=== PATIENT | female | born 1930 | race Caucasian/White ===

== ENCOUNTER 2018-07-17 10:21 | Emergency (ER) | payer OTHER ==
--- OUTSIDE RECORDS SUMMARY | 2018-07-17 10:23 | XMS REPORT | Continuity of Care Document ---
:1930 Author Organization Interface Problems Problem Status Onset Date Classification Date Comments Source Reported Medications Medication Details Route Status Patient Ordering Order Source Instructions Provider Date Allergies, Adverse Reactions, Alerts Substance Category Reaction Severity Reaction Status Date Comments Source type Reported Immunizations Immunization Date Given Site Status Last Updated Comments Source Results Order Results Value Reference Date Interpretation Comments Source Name Range Vital Signs Vital Sign Value Date Comments Source Encounters Location Location Encounter Encounter Reason Attending ADM DC Status Source Details Type Number For Provider Date Date Visit Outpatient [id number] JAMEEL 09/22 [facility] [place] [id number] JAMEEL 10/20 [place] [address] [place] [facility] [id number] JAMEEL 01/[address] Procedures Procedure Code Date Perfomer Comments Source
[2018-07-17 11:32] LABS: Urine Blood NEGATIVE (NEG); Urine Glucose NEGATIVE (NEG); Urine Protein NEGATIVE (NEG); Urine Specific Gravity 1.015 (1.005-1.030); Urine pH 7.5 (5.0-7.0)
[2018-07-17] MEDS ORDERED: NA CHLORIDE 0.9% 1,000 ML ONE (11:41)
[2018-07-17] MEDS ORDERED: METOCLOPRAMIDE 10 MG/2mL INJ ONE (11:41)
[2018-07-17 11:48] LABS: Absolute Lymphocytes (CBC) 1.4 K/uL (0.7-4.9); Absolute Monocytes 0.4 K/uL (0.1-1.3); Absolute Neutrophil 5.2 K/uL (1.8-8.0); Basophils % 1.1 % (0-1.3); Eosinophils % 1.7 % (0-4.4); Hematocrit 41.3 % (36.0-45.0); Lymphocytes % 19.6 % (15.3-44.8); MPV 7.7 fL (7.6-11.3); Monocytes % 5.8 % (3.3-12.3); RBC Red Blood Cell Count 4.44 M/uL (3.86-4.86)
--- NOTE | 2018-07-17 11:51 | RAD REPORT ---
EXAM DESCRIPTION: Marc Single View07/17/2018 11:24 am CLINICAL HISTORY: Cough COMPARISON: none FINDINGS: Mild prominence of the interstitium bilaterally. Hyperaerated lungs Calcified lung granuloma Calcified mediastinal lymph nodes The heart is normal size IMPRESSION: COPD Prominence of the lung interstitium may be chronic or indicate an acute process such as atypical pneu monia/pneumonitis
--- NOTE | 2018-07-17 11:58 | RAD REPORT ---
EXAM DESCRIPTION: CT - Head Brain Wo Cont - 07/17/2018 11:16 am CLINICAL HISTORY: Dizziness COMPARISON: 2018 mri TECHNIQUE: Computed axial tomography of the head was obtained. IV contrast was not requested. All CT scans are performed using dose optimization technique as appropriate and may include automated exposure control or mA/KV adjustment according to patient size. FINDINGS: An intracranial bleed is not seen . The ventricles are normal in caliber. No extra-axial fluid collection is noted. Moderate low-density areas within periventricular, deep and subcortical white matter likely represent ischemic changes secondary to small vessel disease. Fluid within the sinuses/ mastoids is not seen. IMPRESSION: No acute intracranial abnormality is seen. If patient's symptoms persist MRI of the bra in would be recommended.
[2018-07-17 12:19] LABS: ALT/SGPT 16 U/L (12-78); AST/SGOT 18 U/L (15-37); Albumin 4.2 g/dL (3.4-5.0); Alkaline Phosphatase 69 U/L (45-117); BUN Blood Urea Nitrogen 19 mg/dL (7-18); Bicarbonate 29 mmol/L (21-32); Bilirubin Direct 0.1 mg/dL (0-0.2); Bilirubin Total 0.6 mg/dL (0.2-1.0); Glucose Level 74 mg/dL (74-106); Lipase 209 U/L (73-393); Potassium 3.5 mmol/L (3.5-5.1); Protein, Total 8.5 g/dL (6.4-8.2); Sodium Level 142 mmol/L (136-145)
[2018-07-17] MEDS ORDERED: KETOROLAC 30 MG/ML INJ ONE (12:45)
--- NOTE | 2018-07-17 13:21 | EDPHYS ---
Physician Documentation [facility] Name: Berkley Calvo Age: 87 yrs Sex: Female : 1930 Arrival Date: 07/17/2018 Time: 10:31 Bed 24 Private MD: ED Physician Naida Adam HPI: 07/17 11:16 This 87 yrs old Female presents to ER via EMS with complaints of headach. ma2 11:16 The patient complains of pain to the forehead. Onset: The symptoms/episode ma2 began/occurred gradually, 2 day(s) ago. Associated signs and symptoms: Pertinent positives: Pertinent negatives: dizziness, malaise, paresthesias, vision changes, vomiting, weakness. Severity of symptoms: At its worst the pain was mild, in the emergency department the pain is unchanged. Headache History: The patient has had previous headaches and this one is similar to previous episodes. The patient has experienced similar episodes in the past. Historical: - Allergies: 10:35 No Known Allergies; aj1 - Home Meds: 10:35 Synthroid Oral [Active]; amlodipine oral [Active]; aj1 - PMHx: 10:35 Dementia; CVA; aj1 - Immunization history:: Flu vaccine is not up to date. - Social history:: Smoking status: Patient/guardian denies using tobacco, Patient/guardian denies using alcohol, street drugs, The patient lives with family. - Ebola Screening: : Patient denies travel to an Ebola-affected area in the 21 days before illness onset. - Family history:: not pertinent. - Hospitalizations: : No recent hospitalization is reported. ROS: 11:16 Constitutional: Negative for fever, chills, and weight loss, Cardiovascular: Negative ma2 for chest pain, palpitations, and edema, Respiratory: Negative for shortness of breath, cough, wheezing, and pleuritic chest pain, Abdomen/GI: Negative for abdominal pain, nausea, diarrhea, and constipation, Back: Negative for injury and pain, : Negative for injury, bleeding, discharge, and swelling, MS/Extremity: Negative for injury and deformity. 11:16 Neuro: Positive for headache, Negative for dizziness, seizure activity, speech changes, visual changes. 11:16 All other systems are negative. Exam: 11:16 Constitutional: This is a well developed, well nourished patient who is awake, alert, ma2 and in no acute distress. Chest/axilla: Normal chest wall appearance and motion. Nontender with no deformity. No lesions are appreciated. Cardiovascular: Regular rate and rhythm with a normal S1 and S2. No gallops, murmurs, or rubs. Normal PMI, no JVD. No pulse deficits. Respiratory: Lungs have equal breath sounds bilaterally, clear to auscultation and percussion. No rales, rhonchi or wheezes noted. No increased work of breathing, no retractions or nasal flaring. Abdomen/GI: Soft, non-tender, with normal bowel sounds. No distension or tympany. No guarding or rebound. No evidence of tenderness throughout. Neuro: Awake and alert, GCS 15, oriented to person, place, time, and situation. Cranial nerves II-XII grossly intact. Motor strength 5/5 in all extremities. Sensory grossly intact. Cerebellar exam normal. Normal gait. Vital Signs: 10:35 BP 115 / 76; Pulse 82; Resp 14; Temp 98.2; Pulse Ox 98% on R/A; Weight 44.91 kg; aj1 11:33 BP 143 / 75; Pulse 73; Resp 14; Pulse Ox 98% on R/A; aj1 12:28 BP 152 / 64; Pulse 69; Resp 18; Pulse Ox 97% on R/A; aj1 13:30 BP 131 / 60; Pulse 72; Resp 18; Pulse Ox 97% on R/A; aj1 Joselo Coma Score: 11:16 Eye Response: spontaneous(4). Verbal Response: oriented(5). Motor Response: obeys ma2 commands(6). Total: 15. MDM: 10:32 Patient medically screened. ma2 11:16 Differential diagnosis: migraine, sinusitis, subdural hematoma. Data reviewed: vital ma2 signs, nurses notes. Counseling: I had a detailed discussion with the patient and/or guardian regarding: the historical points, exam findings, and any diagnostic results supporting the discharge/admit diagnosis, the presence of at least one elevated blood pressure reading (>120/80) during this emergency department visit, the need for outpatient follow up. 13:20 Response to treatment: the patient's symptoms have markedly improved after treatment. ma2 07/17 10:55 Order name: Salicylate; Complete Time: 13:09 mn07/17 10:55 Order name: Acetaminophen; Complete Time: 13: mn07/17 10:55 Order name: Basic Metabolic Panel; Complete Time: : mn07/17 10:55 Order name: CBC with Diff; Complete Time: 13: mn07/17 10:55 Order name: Creatinine for Radiology; Complete Time: 13: [facility] 07/17 10:55 Order name: Hepatic Function; Complete Time: 13: mn07/17 10:55 Order name: CT Head Brain wo Cont; Complete Time: 13: mn07/17 10:55 Order name: Lipase; Complete Time: : mn07/17 10:55 Order name: IV Saline Lock; Complete Time: : mn07/17 10:55 Order name: Chest Single View XRAY; Complete Time: 13: mn07/17 11:25 Order name: Urine Dipstick--Ancillary (enter results); Complete Time: 11: 07/17 10:55 Order name: Labs collected and sent; Complete Time: :07/17 10:55 Order name: Urine Dipstick-Ancillary (obtain specimen); Complete Time: 11:25 ma Administered Medications: 11:32 Drug: NS 0.9% 1000 ml Route: IV; Rate: 1 bolus; Site: right antecubital; aj1 14:30 Follow up: IV Status: Completed infusion; IV Intake: 1000ml 11:32 Drug: Reglan 10 mg Route: IVP; Site: right antecubital; aj1 14:30 Follow up: Response: No adverse reaction; Marked relief of symptoms 12:31 Drug: TORadol 30 mg Route: IVP; Site: right antecubital; aj1 Disposition: 07/17/18 13:21 Discharged to Home. Impression: Dehydration. - Condition is Stable. - Discharge Instructions: Dehydration, Adult. - Medication Reconciliation Form, Thank You Letter, Antibiotic Education, Prescription Opioid Use form. - Follow up: Private Physician; When: Tomorrow; Reason: Continuance of care. Signatures: [facility] Arlene Gonzalez RN RN aj1 Rashida Dawson RN RN Naida Adam MD MD ma2 Corrections: (The following items were deleted from the chart) 14:45 13:21 07/17/2018 13:21 Discharged to Home. Impression: Dehydration. Condition is ss Stable. Forms are Medication Reconciliation Form, Thank You Letter, Antibiotic Education, Prescription Opioid Use. Follow up: Private Physician; When: Tomorrow; Reason: Continuance of care. ma2
--- NOTE | 2018-07-17 13:21 | ER ---
Nurse's Notes [facility] Name: Berkley Calvo Age: 87 yrs Sex: Female : 1930 Arrival Date: 07/17/2018 Time: 10:31 Bed 24 Private MD: Diagnosis: Dehydration Presentation: 07/17 10:31 Presenting complaint: Child states: She was at home and she started shivering and said aj1 that she couldn't breathe, she puts on a show like that sometimes but she usually can't shake for that long because she gets tired. She hasn't been drinking enough water and she's not been eating much the past couple weeks. Patient has dementia and cannot remember why she came, states that she feels better and is ready to go home. Transition of care: patient was not received from another setting of care. Onset of symptoms was July 17, 2018. Risk Assessment: Do you want to hurt yourself or someone else? Patient reports no desire to harm self or others. Initial Sepsis Screen: Does the patient meet any 2 criteria? No. Patient's initial sepsis screen is negative. Does the patient have a suspected source of infection? No. Patient's initial sepsis screen is negative. Care prior to arrival: None. 10:31 Method Of Arrival: EMS: [facility] aj1 10:31 Acuity: MILES 3 aj1 Triage Assessment: 10:35 General: Appears in no apparent distress. comfortable, Behavior is anxious, restless. aj1 Pain: Complains of pain in back. Historical: - Allergies: 10:35 No Known Allergies; aj1 - Home Meds: 10:35 Synthroid Oral [Active]; amlodipine oral [Active]; aj1 - PMHx: 10:35 Dementia; CVA; aj1 - Immunization history:: Flu vaccine is not up to date. - Social history:: Smoking status: Patient/guardian denies using tobacco, Patient/guardian denies using alcohol, street drugs, The patient lives with family. - Ebola Screening: : Patient denies travel to an Ebola-affected area in the 21 days before illness onset. - Family history:: not pertinent. - Hospitalizations: : No recent hospitalization is reported. Screenin:37 Abuse screen: Denies threats or abuse. Denies injuries from another. Nutritional aj1 screening: No deficits noted. Tuberculosis screening: No symptoms or risk factors identified. Assessment: 10:37 General: Appears in no apparent distress. comfortable, Behavior is anxious, restless. aj1 Pain: Complains of pain in back. Neuro: Level of Consciousness is awake, alert, obeys commands, confused, Oriented to person. Cardiovascular: Patient's skin is warm and dry. Rhythm is regular. Respiratory: Airway is patent Respiratory effort is even, unlabored, Respiratory pattern is regular, symmetrical, Breath sounds are clear bilaterally. GI: No signs and/or symptoms were reported involving the gastrointestinal system. Abdomen is flat, non-distended, Abd is soft and non tender X 4 quads. Reports nausea. : No signs and/or symptoms were reported regarding the genitourinary system. EENT: No signs and/or symptoms were reported regarding the EENT system. Derm: No signs and/or symptoms reported regarding the dermatologic system. Skin is pink, warm \T\ dry. normal. Musculoskeletal: No signs and/or symptoms reported regarding the musculoskeletal system. Circulation, motion, and sensation intact. 11:33 Reassessment: Patient appears in no apparent distress at this time. No changes from aj1 previously documented assessment. Patient and/or family updated on plan of care and expected duration. Pain level reassessed. 12:27 Reassessment: Patient and/or family updated on plan of care and expected duration. Pain aj1 level reassessed. General: Appears in no apparent distress. comfortable, Behavior is calm, cooperative. Neuro: Level of Consciousness is awake, alert, obeys commands, confused, Oriented to person. Respiratory: Airway is patent Respiratory effort is even, unlabored, Respiratory pattern is regular, symmetrical. GI: Abdomen is flat, non-distended. Derm: Skin is pink, warm \T\ dry. normal. Musculoskeletal: Circulation, motion, and sensation intact. 13:30 Reassessment: Patient appears in no apparent distress at this time. No changes from aj1 previously documented assessment. Patient and/or family updated on plan of care and expected duration. Pain level reassessed. 13:57 Reassessment: Patient discharge pending completion of IV fluids. aj1 Vital Signs: 10:35 BP 115 / 76; Pulse 82; Resp 14; Temp 98.2; Pulse Ox 98% on R/A; Weight 44.91 kg; aj1 11:33 BP 143 / 75; Pulse 73; Resp 14; Pulse Ox 98% on R/A; aj1 12:28 BP 152 / 64; Pulse 69; Resp 18; Pulse Ox 97% on R/A; aj1 13:30 BP 131 / 60; Pulse 72; Resp 18; Pulse Ox 97% on R/A; aj1 [place] Coma Score: 11:16 Eye Response: spontaneous(4). Verbal Response: oriented(5). Motor Response: obeys ma2 commands(6). Total: 15. ED Course: 10:31 Patient arrived in ED. aj1 10:32 Naida Adam MD is Attending Physician. ma2 10:34 Triage completed. aj1 10:35 Arm band placed on. aj1 10:37 Patient has correct armband on for positive identification. Bed in low position. Call aj1 light in reach. Side rails up X 1. 10:37 No provider procedures requiring assistance completed. aj1 11:00 EKG done, by ED staff, reviewed by Naida Adam MD. jb1 11:08 Arlene Ibarra, RN is Primary Nurse. aj1 11:17 CT Head Brain wo Cont In Process Unspecified. EDMS 11:25 Chest Single View XRAY In Process Unspecified. EDMS 14:44 IV discontinued, intact, bleeding controlled, No redness/swelling at site. Pressure ss dressing applied. Administered Medications: 11:32 Drug: NS 0.9% 1000 ml Route: IV; Rate: 1 bolus; Site: right antecubital; aj1 14:30 Follow up: IV Status: Completed infusion; IV Intake: 1000ml ss 11:32 Drug: Reglan 10 mg Route: IVP; Site: right antecubital; aj1 14:30 Follow up: Response: No adverse reaction; Marked relief of symptoms ss 12:31 Drug: TORadol 30 mg Route: IVP; Site: right antecubital; aj1 Intake: 14:30 IV: 1000ml; Total: 1000ml. ss Outcome: 13:21 Discharge ordered by . ma2 14:44 Discharged to home via wheelchair, with family. ss 14:44 Condition: good 14:44 Discharge instructions given to patient, family, Instructed on discharge instructions, follow up and referral plans. Demonstrated understanding of instructions, follow-up care. 14:45 Patient left the ED. ss Signatures: Dispatcher [employer] Jim Trujillo jb1 Arlene Ibarra RN RN aj1 Rashida Dawson RN RN ss Naida Adam MD MD ma2
--- NOTE | 2018-07-18 08:00 | EKG ---
Test Date: 2018-07-17 Test Time: 10:57:02 Program Clinician: ASHWINI MEASUREMENT RESULTS: Intervals: Rate: 79 GA: 162 QRSD: 76 QT: 384 QTc: 440 Swiss: P: 84 GA: 162 QRS: 55 T: 46 INTERPRETIVE STATEMENTS: Normal sinus rhythm Normal ECG No previous ECG available for comparison Electronically Signed On 07-18-18 07:57:22 CDT by Orlin Carreno
== END 2018-07-17 14:45 | disposition home or self-care (01) ==
LOC: ER 10:21
DX: E86.0 Dehydration (principal); F03.90 Unspecified dementia, unspecified severity, without behavioral disturbance, psychotic disturbance, mood disturbance, and anxiety; Z86.73 Personal history of transient ischemic attack (TIA), and cerebral infarction without residual deficits
CPT/HCPCS: 96361; 93005; 85025; 80048; 36415; 80329 ×2; 80076; 81003; 83690; 70450; 71045; 96375; 96374; 99284; J2765; J7030

== ENCOUNTER 2018-10-02 21:39 | Emergency (ER) | payer OTHER ==
--- OUTSIDE RECORDS SUMMARY | 2018-10-02 21:41 | XMS REPORT | Summary of Care ---
:1930 Author Organization [facility] [place] Address [address] [place] [address]- Encounter HQ Encntr_alias(FIN) [id number] Date(s): 01/24/18 - 01/25/18 [facility] [place] [address] [place] [address]- [phone] Vital Signs No data available for this section Problem List Condition Effective Dates Status Health Status Informant Stroke(Confirmed) Resolved Dementia(Confirmed) Active Thyroid condition(Confirmed) Resolved HTN - Hypertension(Confirmed) Active Hypothyroidism(Confirmed) Active Allergies, Adverse Reactions, Alerts No Known Medication Allergies Medications No data available for this section Results No data available for this section Immunizations No data available for this section Procedures Procedure Date Related Diagnosis Body Site Status Bladder augmentation Completed Social History Social History Type Response Employment/School Status: Retired. Other: not driving.1 Smoking Status Former smoker; Type: Cigarettes; Exposure to Tobacco Smoke None ; Cigarette Smoking Last 365 Days No; Reg Smoking Cessation Counseling No entered on: 10/20/17 1has POA Assessment and Plan No data available for this section
--- OUTSIDE RECORDS SUMMARY | 2018-10-02 21:41 | XMS REPORT | Summary of Care ---
:1930 Author Organization [facility] [place] Address [address] [place] [address]- Encounter HQ Encntr_alisulema(FIN) [id number] Date(s): 01/20/18 - 01/20/18 [facility] [place] [address], [place] [address]- [phone] Attending Physician: Maged Quinones MD Referring Physician: Maged Quinones MD Vital Signs No data available for this [...]
--- OUTSIDE RECORDS SUMMARY | 2018-10-02 21:41 | XMS REPORT | Continuity of Care Document ---
:1930 Author Organization [facility] Team Providers Name Role Phone [facility] Unavailable Unavailable Problems Problem Status Onset Classification Date Comments Source Date Reported Stroke Resolved Problem 08/15/2018 [facility] Dementia Active Problem 08/15/2018 [facility] [place] Thyroid condition Resolved Problem 08/15/2018 [facility] [place] [facility] HTN - Active Problem 08/15/2018 [facility] [place] Hypertension Neuro Hypothyroidism Active Problem 08/15/2018 [facility] [place] Medications No Data Provided for This Section Allergies, Adverse Reactions, Alerts Substance Category Reaction Severity Reaction Status Date Comments Source type Reported No Known Assertion Drug [facility] Medication allergy Neuro Allergies Immunizations No Data Provided for This Section Results No Data Provided for This Section Pathology Reports No Data Provided for This Section Diagnostic Reports No Data Provided for This Section Consultation Notes No Data Provided for This Section Discharge Summaries No Data Provided for This Section History and Physicals No Data Provided for This Section Vital Signs No Data Provided for This Section Encounters Location Location Encounter Encounter Reason Attending ADM DC Status Source Details Type Number For Provider Date Date Visit Outpatient [id number] JAEMEL 09/22 [facility]2017 [place] [facility] [id number] JAMEEL 10/20 [facility] [place] [id number] JAMEEL 01/20 [facility]2017 [place] [facility] [id number] Jameel 01/20 01/20 [facility] [place] [facility] /2017 [place] [facility] Outside [id number] 01/24 01/26 [facility] [place] [facility] [place] Records Procedures Procedure Code Date Perfomer Comments Source Bladder [id number] [facility] [place] [facility] augmentation Assessment and Plan No Data Provided for This Section Plan of Care No Data Provided for This Section Social History Social History Date Source Social History TypeResponse 09/22/2017 [facility] [place] [facility] Employment/School Status: Retired. Other: not driving.1 Smoking Status Former smoker; Type: Cigarettes; Exposure to Tobacco Smoke None; Cigarette Smoking Last 365 Days No; Reg Smoking Cessation Counseling No entered on: 10/20/17 1has POA Family History No Data Provided for This Section Advance Directives No Data Provided for This Section Functional Status No Data Provided for This Section
[2018-10-02 22:42] LABS: Absolute Lymphocytes (CBC) 1.6 K/uL (0.7-4.9); Hematocrit 33.6 % (36.0-45.0); Lymphocytes % 20.8 % (15.3-44.8); MPV 7.6 fL (7.6-11.3); RBC Red Blood Cell Count 3.51 M/uL (3.86-4.86)
[2018-10-02 22:57] LABS: Albumin 3.4 g/dL (3.4-5.0); Bilirubin Direct 0.1 mg/dL (0-0.2); Bilirubin Total 0.4 mg/dL (0.2-1.0); Protein, Total 7.2 g/dL (6.4-8.2)
[2018-10-02 23:28] LABS: Urine Amorphous Sediment 1+ /HPF (NONE SEEN); Urine Bacteria 20-50 /HPF (<20); Urine Culture Reflex Order REFLEXED; Urine RBC NONE SEEN /HPF (NONE SEEN)
[2018-10-02 23:29] LABS: Urine Blood TRACE (NEG); Urine Glucose NEGATIVE (NEG); Urine Protein NEGATIVE (NEG); Urine pH 6.5 (5.0-7.0)
[2018-10-03] MEDS ORDERED: CEFTRIAXONE/SWI 1gm 1 GM/10 ML SYR ONE (00:35)
[2018-10-03] MEDS ORDERED: ACETAMINOPHEN 325 MG TABLET ONE (00:35)
--- NOTE | 2018-10-03 01:06 | EDPHYS ---
Physician Documentation [facility] Name: Berkley Calvo Age: 87 yrs Sex: Female : 1930 Arrival Date: 10/02/2018 Time: 21:53 Bed 17 Private MD: Curtis Corley C ED Physician Glen Lackey HPI: 10/03 02:02 This 87 yrs old Female presents to ER via Wheelchair with complaints of Flank tw4 Pain, Drinking an excessive amount of water, Fall Injury. 02:02 The patient complains of pain in the left mid back. The pain does not radiate. Onset: tw4 The symptoms/episode began/occurred yesterday. Modifying factors: The symptoms are alleviated by remaining still, the symptoms are aggravated by movement. Associated signs and symptoms: The patient has no apparent associated signs or symptoms. Severity of pain: At its worst the pain was moderate in the emergency department the pain is unchanged. The patient has not experienced similar symptoms in the past. Historical: - Allergies: 10/02 22:15 No Known Allergies; ea - Home Meds: 22:15 amlodipine oral [Active]; Synthroid Oral [Active]; ea - PMHx: 22:15 Dementia; CVA; OA; scoliosis; ea - Immunization history:: Adult Immunizations up to date. - Social history:: Smoking status: Patient/guardian denies using tobacco. - Ebola Screening: : No symptoms or risks identified at this time. ROS: 10/03 02:02 Constitutional: Negative for fever, chills, and weight loss, Eyes: Negative for injury, tw4 pain, redness, and discharge, Cardiovascular: Negative for chest pain, palpitations, and edema, Respiratory: Negative for shortness of breath, cough, wheezing, and pleuritic chest pain, Abdomen/GI: Negative for abdominal pain, nausea, vomiting, diarrhea, and constipation. MS/Extremity: Negative for injury and deformity, Skin: Negative for injury, rash, and discoloration. : Positive for flank pain. Exam: 02:02 Constitutional: This is a well developed, well nourished patient who is awake, alert, tw4 and in no acute distress. Head/Face: Normocephalic, atraumatic. Chest/axilla: Normal chest wall appearance and motion. Nontender with no deformity. No lesions are appreciated. Cardiovascular: Regular rate and rhythm with a normal S1 and S2. No gallops, murmurs, or rubs. Normal PMI, no JVD. No pulse deficits. Respiratory: Lungs have equal breath sounds bilaterally, clear to auscultation and percussion. No rales, rhonchi or wheezes noted. No increased work of breathing, no retractions or nasal flaring. Abdomen/GI: Soft, non-tender, with normal bowel sounds. No distension or tympany. No guarding or rebound. No evidence of tenderness throughout. 02:02 MS/ Extremity: Pulses equal, no cyanosis. Neurovascular intact. Full, normal range of motion. Neuro: Awake and alert, GCS 15, oriented to person, place, time, and situation. Cranial nerves II-XII grossly intact. Motor strength 5/5 in all extremities. Sensory grossly intact. Cerebellar exam normal. Normal gait. 02:02 Back: CVA tenderness, is noted on the right. Vital Signs: 10/02 22:13 BP 155 / 62; Pulse 70; Resp 20; Temp 98.7; Pulse Ox 100% on R/A; Weight 45.36 kg; ea Height 5 ft. 1 in. (154.94 cm); 23:00 BP 151 / 78; Pulse 62; Resp 17; Pulse Ox 99% ; rr5 10/03 00:26 BP 139 / 55; Pulse 68; Resp 18; Pulse Ox 99% on R/A; mt 01:00 BP 131 / 62; Pulse 65; Resp 17; Pulse Ox 99% on R/A; rr5 10/02 22:13 Body Mass Index 18.89 (45.36 kg, 154.94 cm) ea MDM: 10/02 22:11 Patient medically screened. tw4 10/03 02:02 Differential diagnosis: nephrolithiasis, pyelonephritis. Data reviewed: vital signs, tw4 nurses notes. Counseling: I had a detailed discussion with the patient and/or guardian regarding: the historical points, exam findings, and any diagnostic results supporting the discharge/admit diagnosis. 10/02 22:12 Order name: Basic Metabolic Panel; Complete Time: 00:25 tw4 10/03 00:25 Interpretation: Normal except: BUN 28; GFR 40. tw4 10/02 22:12 Order name: CBC with Diff; Complete Time: 00:25 tw4 08/13 00:25 Interpretation: Normal except: RBC 3.51; HGB 11.4; HCT 33.6. 10/02 22:12 Order name: Creatinine for Radiology; Complete Time: 00:25 10/03 00:25 Interpretation: Normal except: GFR 40. 10/02 22:12 Order name: Hepatic Function; Complete Time: 00:25 10/03 00:26 Interpretation: Normal except: GLOB 3.8; A/G 0.9. 10/02 22:12 Order name: Lipase; Complete Time: 00:25 10/02 22:12 Order name: Urine Microscopic Only; Complete Time: 00:25 10/03 00:27 Interpretation: Normal except: UBACT 20-50. 10/02 22:12 Order name: IV Saline Lock; Complete Time: 22:25 [facility] 10/02 22:12 Order name: Labs collected and sent; Complete Time: 22:25 [facility] 10/02 22:12 Order name: Urine Dipstick-Ancillary (obtain specimen); Complete Time: 22:54 10/02 22:12 Order name: CT Head Brain wo Cont 10/02 22:51 Order name: Urine Dipstick--Ancillary (enter results); Complete Time: 00:25 10/03 00:27 Interpretation: Normal except: UBLD TRACE; UESTR TRACE. 10/02 23:38 Order name: Urine Culture EDMS Administered Medications: 00:45 Drug: Rocephin - (cefTRIAXone) 1 grams Route: IVPB; Infused Over: 30 mins; Site: right rr5 antecubital; 01:19 Follow up: Response: No adverse reaction; IV Status: Completed infusion; IV Intake: [id number] 00:46 Drug: Tylenol 650 mg Route: PO; rr5 01:19 Follow up: Response: Medication administered at discharge. rr5 Disposition: 10/03/18 01:05 Discharged to Home. Impression: Urinary tract infection, site not specified. - Condition is Stable. - Discharge Instructions: Urinary Tract Infection, Adult. - Prescriptions for Macrobid 100 mg Oral Capsule - take 1 capsule by ORAL route every 12 hours for 10 days; 20 capsule. - Medication Reconciliation Form, Thank You Letter, Antibiotic Education, Prescription Opioid Use form. - Follow up: Curtis Corley MD; When: Upon discharge from the Emergency Department; Reason: If symptoms return, Recheck today's complaints, Continuance of care. - Problem is new. - Symptoms have improved. Signatures: Dispatcher [employer] EDMS Edie Shea RN RN Glen Ryder MD MD tw4 Hugo Fine RN RN rr5 Corrections: (The following items were deleted from the chart) 01:20 01:05 10/03/2018 01:05 Discharged to Home. Impression: Urinary tract infection, site rr5 not specified. Condition is Stable. Forms are Medication Reconciliation Form, Thank You Letter, Antibiotic Education, Prescription Opioid Use. Follow up: Curtis Corley; When: Upon discharge from the Emergency Department; Reason: If symptoms return, Recheck today's complaints, Continuance of care. Problem is new. Symptoms have improved. tw4
--- NOTE | 2018-10-03 01:06 | ER ---
Nurse's Notes [facility] Name: Berkley Calvo Age: 87 yrs Sex: Female : 1930 Arrival Date: 10/02/2018 Time: 21:53 Bed 17 Private MD: Curtis Corley C Diagnosis: Urinary tract infection, site not specified Presentation: 10/02 22:09 Presenting complaint: Child states: Pt's daughter reports pt has been complaining of ea left flank pain for a couple days, reports she has seen her drink more water than usual. Daughter reports mother has dementia but has noticed her become more confused this past week. Reports witnessed her slide off the recliner, denies head injury or LOC. Transition of care: patient was not received from another setting of care. Onset of symptoms was October 02, 2018. Risk Assessment: Do you want to hurt yourself or someone else? Patient reports no desire to harm self or others. Initial Sepsis Screen: Does the patient meet any 2 criteria? No. Patient's initial sepsis screen is negative. Does the patient have a suspected source of infection? No. Patient's initial sepsis screen is negative. Care prior to arrival: None. 22:09 Method Of Arrival: Wheelchair ea 22:09 Acuity: MILES 3 ea Triage Assessment: 22:15 General: Appears uncomfortable, Behavior is appropriate for age. Pain: Complains of ea pain in left flank pain. Neuro: Level of Consciousness is awake, alert, obeys commands, Oriented to person, place. Historical: - Allergies: 22:15 No Known Allergies; ea - Home Meds: 22:15 amlodipine oral [Active]; Synthroid Oral [Active]; ea - PMHx: 22:15 Dementia; CVA; OA; scoliosis; ea - Immunization history:: Adult Immunizations up to date. - Social history:: Smoking status: Patient/guardian denies using tobacco. - Ebola Screening: : No symptoms or risks identified at this time. Screenin:13 Abuse screen: Denies threats or abuse. Nutritional screening: No deficits noted. ea Tuberculosis screening: No symptoms or risk factors identified. Fall Risk Fall in past 12 months (25 points). Assessment: 22:10 General: Appears in no apparent distress. uncomfortable, Behavior is calm, cooperative, rr5 patient has history of dementia. 22:10 Pain: Complains of pain in left flank Pain does not radiate. Pain currently is 7 out of rr5 10 on a pain scale. Quality of pain is described as aching, Pain began gradually, Is intermittent. Neuro: Level of Consciousness is awake, alert, obeys commands, Oriented to person, place, time, situation, Appropriate for age. Cardiovascular: Capillary refill < 3 seconds Patient's skin is warm and dry. Respiratory: Airway is patent Respiratory effort is even, unlabored, Respiratory pattern is regular, symmetrical. GI: No signs and/or symptoms were reported involving the gastrointestinal system. : Reports pain in left flank(s). EENT: No signs and/or symptoms were reported regarding the EENT system. Derm: Skin is intact, Skin temperature is warm. Musculoskeletal: Circulation, motion, and sensation intact. Capillary refill < 3 seconds. 23:21 Reassessment: Patient appears in no apparent distress at this time. awaiting for CT rr5 result. 10/03 00:10 Reassessment: Patient appears in no apparent distress at this time. Patient and/or rr5 family updated on plan of care and expected duration. Pain level reassessed. awaiting for review. 01:15 Reassessment: Patient appears in no apparent distress at this time. Patient and/or rr5 family updated on plan of care and expected duration. Pain level reassessed. 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 Patient states symptoms have improved. Vital Signs: 10/02 22:13 BP 155 / 62; Pulse 70; Resp 20; Temp 98.7; Pulse Ox 100% on R/A; Weight 45.36 kg; ea Height 5 ft. 1 in. (154.94 cm); 23:00 BP 151 / 78; Pulse 62; Resp 17; Pulse Ox 99% ; rr5 10/03 00:26 BP 139 / 55; Pulse 68; Resp 18; Pulse Ox 99% on R/A; mt 01:00 BP 131 / 62; Pulse 65; Resp 17; Pulse Ox 99% on R/A; rr5 10/02 22:13 Body Mass Index 18.89 (45.36 kg, 154.94 cm) ea ED Course: 10/02 21:53 Patient arrived in ED. es 21:53 Curtis Corley MD is Private Physician. es 22:04 Huog Fine, TEJAL is Primary Nurse. rr5 22:11 Glen Lackey MD is Attending Physician. tw4 22:13 Triage completed. ea 22:15 Patient has correct armband on for positive identification. Bed in low position. Call ea light in reach. Side rails up X2. 22:15 Arm band placed on right wrist. Patient placed in an exam room, on a stretcher, on ea pulse oximetry. 22:24 Inserted saline lock: 20 gauge in right antecubital area, using aseptic technique. wv Blood collected. 22:32 CT completed. Patient tolerated procedure well. Patient moved to CT. Patient moved back pa from CT. 22:42 CT Head Brain wo Cont In Process Unspecified. EDAZ 10/03 01:03 Curtis Corley MD is Referral Physician. tw4 01:20 No provider procedures requiring assistance completed. IV discontinued, intact, rr5 bleeding controlled, No redness/swelling at site. Pressure dressing applied. Administered Medications: 00:45 Drug: Rocephin - (cefTRIAXone) 1 grams Route: IVPB; Infused Over: 30 mins; Site: right rr5 antecubital; 01:19 Follow up: Response: No adverse reaction; IV Status: Completed infusion; IV Intake: [id number] 00:46 Drug: Tylenol 650 mg Route: PO; rr5 01:19 Follow up: Response: Medication administered at discharge. rr5 Intake: 01:19 IV: 50ml; Total: 50ml. rr5 Outcome: 01:05 Discharge ordered by . tw4 01:20 Discharged to home ambulatory, with family. rr5 01:20 Condition: stable 01:20 Discharge instructions given to family, Instructed on discharge instructions, follow up and referral plans. medication usage, Demonstrated understanding of instructions, follow-up care, medications, Prescriptions given X 1. 01:20 Patient left the ED. rr5 Signatures: Dispatcher [employer] EDAZ Christy Hendricks, Yulia Larsen mt, Elena, Glen Carballo RN, ea, MD MD tw4 Hugo Fine, TEJAL RN rr5
--- NOTE | 2018-10-04 10:23 | RAD REPORT ---
EXAM DESCRIPTION: CT - Head Brain Wo Cont - 10/03/2018 3:53 am CLINICAL HISTORY: CONFUSED COMPARISON: July 17, 2018 TECHNIQUE: Contiguous axial sections are obtained as per protocol. Sagittal and coronal reformations are submitted Automatic exposure control (AEC), mA and/or kV adjustment by patient size, and/or iterative reconstru ctive technique was used, per departmental dose optimization program, during the performance of the C T examination. FINDINGS: Prominence of the lateral ventricles, greater on the left than the right are noted. Perive ntricular deep white matter ischemic demyelinating changes are seen. Mild generalized cortical atroph y is noted. Normal cho-white matter differentiation is noted. No evidence of intra or extra-axial hemorrhage, hematoma, mass, mass effect or midline shift is noted. The posterior fossa structures appear normal. The bony calvarium appears intact. The soft tissues of the scalp appear unremarkable. Normal appearance of the orbits are noted. The paranasal sinuses and mastoids appear normal. IMPRESSION: No acute findings or interval change. If clinically ischemic CVA is suspected, MRI brain with diffusion-weighted images should be considere d. Electronically signed by: Estrella Mace MD 10/02/2018 10:48 PM CDT Due to temporary technical issues with the PACS/Fluency reporting system, reports are being signed by the in house radiologist as a courtesy to ensure prompt reporting. The interpreting radiologist is f ully responsible for the content of the report.
== END 2018-10-03 01:20 | disposition home or self-care (01) ==
LOC: ER 21:39
DX: N39.0 Urinary tract infection, site not specified (principal); F03.90 Unspecified dementia, unspecified severity, without behavioral disturbance, psychotic disturbance, mood disturbance, and anxiety; Z86.73 Personal history of transient ischemic attack (TIA), and cerebral infarction without residual deficits
CPT/HCPCS: 96365; 87088; 85025; 87086; 80048; 36415; 80076; 83690; 70450; 99284; J0696; 81003; 81015

== ENCOUNTER 2018-12-04 03:02 | Emergency (ER) | payer OTHER ==
--- NOTE | 2018-12-04 04:23 | EDPHYS ---
Physician Documentation [facility] Name: Berkley Calvo Age: 88 yrs Sex: Female : 1930 Arrival Date: 12/04/2018 Time: 03:09 Bed 7 Private MD: ED Physician Guru Tran HPI: 12/04 04:02 This 88 yrs old Female presents to ER via EMS with complaints of Fall Injury. gs 04:02 Details of fall: The patient fell from seated position. Onset: The symptoms/episode gs began/occurred acutely, just prior to arrival. Associated injuries: The patient sustained injury to the head, contusion, hematoma. Severity of symptoms: At their worst the symptoms were moderate, in the emergency department the symptoms are unchanged. The patient has experienced similar episodes in the past, a few times. Historical: - Allergies: 03:00 No Known Allergies; rr5 - Home Meds: 03:00 amlodipine 5 mg oral tab [Active]; aspirin 81 mg Oral TbEC [Active]; levothyroxine 50 rr5 mcg tab [Active]; Lexapro 10 mg Oral tab [Active]; Tylenol Extra Strength oral oral [Active]; Tylenol 325 mg oral tab [Active]; - PMHx: 03:00 Dementia; Anxiety; Thyroid problem; CVA; OA; scoliosis; Hypertension; rr5 - Immunization history: Last tetanus immunization: unknown. - Social history:: Smoking status: Patient/guardian denies using tobacco, Patient/guardian denies using alcohol. - Ebola Screening: : No symptoms or risks identified at this time. ROS: 04:02 All other systems are negative. gs Exam: 04:02 Eyes: Pupils equal round and reactive to light, extra-ocular motions intact. Lids and gs lashes normal. Conjunctiva and sclera are non-icteric and not injected. Cornea within normal limits. Periorbital areas with no swelling, redness, or edema. ENT: Nares patent. No nasal discharge, no septal abnormalities noted. Tympanic membranes are normal and external auditory canals are clear. Oropharynx with no redness, swelling, or masses, exudates, or evidence of obstruction, uvula midline. Mucous membranes moist. Neck: Trachea midline, no thyromegaly or masses palpated, and no cervical lymphadenopathy. Supple, full range of motion without nuchal rigidity, or vertebral point tenderness. No Meningismus. Chest/axilla: Normal chest wall appearance and motion. Nontender with no deformity. No lesions are appreciated. Cardiovascular: Regular rate and rhythm with a normal S1 and S2. No gallops, murmurs, or rubs. Normal PMI, no JVD. No pulse deficits. Respiratory: Lungs have equal breath sounds bilaterally, clear to auscultation and percussion. No rales, rhonchi or wheezes noted. No increased work of breathing, no retractions or nasal flaring. Abdomen/GI: Soft, non-tender, with normal bowel sounds. No distension or tympany. No guarding or rebound. No evidence of tenderness throughout. Back: No spinal tenderness. No costovertebral tenderness. Full range of motion. Skin: Warm, dry with normal turgor. Normal color with no rashes, no lesions, and no evidence of cellulitis. MS/ Extremity: Pulses equal, no cyanosis. Neurovascular intact. Full, normal range of motion. 04:02 Constitutional: The patient appears alert, awake. 04:02 Head/face: Noted is contusion, hematoma, that is mild, of the lateral canthus of right eye. 04:02 Neuro: Mentation: at baseline per daughter, Cranial nerves: CN II- XII are normal as tested, Motor: moves all fours, strength is normal, Sensation: no obvious gross deficits. Vital Signs: 03:00 BP 132 / 69; Pulse 63; Resp 36; Temp 97.6(O); Pulse Ox 100% on R/A; Weight 45.36 kg jb4 (R); Height 5 ft. 2 in. (157.48 cm); Pain 6/10; 04:00 BP 138 / 69; Pulse 60; Resp 16; Pulse Ox 94% on R/A; jb4 03:00 Body Mass Index 18.29 (45.36 kg, 157.48 cm) jb4 [place] Coma Score: 03:00 Eye Response: spontaneous(4). Verbal Response: confused(4). Motor Response: obeys jb4 commands(6). Total: 14. 04:00 Eye Response: spontaneous(4). Verbal Response: confused(4). Motor Response: obeys jb4 commands(6). Total: 14. Trauma Score (Adult): 03:00 Eye Response: spontaneous(1); Verbal Response: confused(1); Motor Response: obeys jb4 commands(2); Systolic BP: > 89 mm Hg(4); Respiratory Rate: > 29 per min(3); Joselo Score: 14; Trauma Score: 11 04:00 Eye Response: spontaneous(1); Verbal Response: confused(1); Motor Response: obeys jb4 commands(2); Systolic BP: > 89 mm Hg(4); Respiratory Rate: 10 to 29 per min(4); [place] Score: 14; Trauma Score: 12 MDM: 03:22 Patient medically screened. 04:02 Differential diagnosis: closed head injury, contusion, fracture. Data reviewed: vital gs signs, nurses notes, radiologic studies. Counseling: I had a detailed discussion with the patient and/or guardian regarding: the historical points, exam findings, and any diagnostic results supporting the discharge/admit diagnosis, lab results. 12/04 03:17 Order name: CT Head C Spine gs Administered Medications: No medications were administered Disposition: 12/04/18 04:22 Discharged to Home. Impression: Contusion of other part of head. - Condition is Stable. - Discharge Instructions: Head Injury, Adult. - Medication Reconciliation Form, Thank You Letter, Antibiotic Education, Prescription Opioid Use form. - Follow up: Private Physician; When: 2 - 3 days; Reason: Re-evaluation by your physician. Signatures: Dispatcher [employer] EDRuben Ortez RN RN jb4 Guru Tran MD MD Hugo Fine RN RN rr5 Corrections: (The following items were deleted from the chart) 03:22 03:22 Hospitalization Ordered by Naida Thompson MD for Inpatient Admission. Preliminary gs diagnosis is Unstable angina. Bed requested for Telemetry/MedSurg (Inpatient). Status is Inpatient Admission. Condition is Stable. Problem is new. Symptoms have improved. UTI on Admission? No. gs 04:32 04:22 12/04/2018 04:22 Discharged to Home. Impression: Contusion of other part of head. jb4 Condition is Stable. Forms are Medication Reconciliation Form, Thank You Letter, Antibiotic Education, Prescription Opioid Use. Follow up: Private Physician; When: 2 - 3 days; Reason: Re-evaluation by your physician. gs
--- NOTE | 2018-12-04 04:23 | ER ---
Nurse's Notes [facility] Name: Berkley Calvo Age: 88 yrs Sex: Female : 1930 Arrival Date: 12/04/2018 Time: 03:09 Bed 7 Private MD: Diagnosis: Contusion of other part of head Presentation: 12/04 03:00 Presenting complaint: EMS states: PT fell from sitting, was on the toilet and fell and jb4 hit her head. LOC is unknown. Pt was reportedly at her base line prior to the fall, now she is oriented only to self. Pt vomited once after falling. 03:00 Care prior to arrival: None. Mechanism of Injury: Fall out of chair. Trauma event jb4 details: Injury occurred in the [facility]. 03:00 Method Of Arrival: EMS: [facility] jb4 03:00 Acuity: MILES 2 jb4 03:00 Transition of care: patient was received from another setting of care (long-term care 4 facility), [facility]. 03:00 Onset of symptoms was December 04, 2018. Risk Assessment: Do you want to hurt yourself jb4 or someone else? Patient reports no desire to harm self or others. Initial Sepsis Screen: Does the patient meet any 2 criteria? RR > 20 per min. Yes Does the patient have a suspected source of infection? No. Patient's initial sepsis screen is negative. Trauma Activation: Alert Physician: ED Physician; Name: Chelsea; Notified At: 03:00; Arrived At: 03:00 Physician: General Surgeon; Name: ; Notified At: ; Arrived At: Physician: Radiology; Name: Elsy; Notified At: 03:00; Arrived At: 03:00 Physician: Respiratory; Name: ; Notified At: ; Arrived At: Physician: Lab; Name: ; Notified At: ; Arrived At: Historical: - Allergies: 03:00 No Known Allergies; rr5 - Home Meds: 03:00 amlodipine 5 mg oral tab [Active]; aspirin 81 mg Oral TbEC [Active]; levothyroxine 50 rr5 mcg tab [Active]; Lexapro 10 mg Oral tab [Active]; Tylenol Extra Strength oral oral [Active]; Tylenol 325 mg oral tab [Active]; - PMHx: 03:00 Dementia; Anxiety; Thyroid problem; CVA; OA; scoliosis; Hypertension; rr5 - Immunization history: Last tetanus immunization: unknown. - Social history:: Smoking status: Patient/guardian denies using tobacco, Patient/guardian denies using alcohol. - Ebola Screening: : No symptoms or risks identified at this time. Screenin:00 Abuse screen: Denies threats or abuse. Nutritional screening: No deficits noted. jb4 Tuberculosis screening: No symptoms or risk factors identified. Fall risk At risk due to injury, age. 03:00 Fall Risk Fall in past 12 months (25 points). Secondary diagnosis (15 points) dementia, jb4 Mental Status- Overestimates/Forgets Limitations (15 pts.). Total Correa Fall Scale indicates High Risk Score (45 or more points). Fall prevention measures have been instituted. Side Rails Up X 2 Placed Close to Nursing Station Frequent Obs/Assessments Occuring Family Present and informed to notify staff if the need to leave the bedside As available patient and family educated on Fall Prevention Program and Strategies. Primary Survey: 03:00 NO uncontrolled hemorrhage observed. A: The patient is alert. Airway: patent, No jb4 supplemental oxygen in use on arrival. Breathing/Chest: Respiratory pattern: regular, Respiratory effort: spontaneous, unlabored, Chest inspection: symmetrical rise and fall of the chest. Circulation: Cardiac rhythm: sinus rhythm Skin color: pink, Skin temperature: warm, dry. Disability Alert. Exposure/Environment: All clothing and personal items were removed. Forensic evidence collection is not deemed to be indicated at this time. Items placed in patient belonging bag. There is no evidence of uncontrolled external bleeding. Obvious injury(ies) are noted at this time: Bruise noted to the right eye. A warming method has been applied: A warm blanket has been provided to the patient. 03:59 Reassessment Airway Airway Patent Breathing/Chest Respiratory pattern Regular jb4 Respiratory effort Spontaneous Unlabored Circulation Color [place] Temperature Warm Dry Disability Alert. Secondary Survey: 03:00 HEENT: Face Other Bruise noted to the right eye. Gastrointestinal: Patient vomited jb4 prior to arrival. : No deficits noted. No signs and/or symptoms were reported regarding the genitourinary system. Musculoskeletal: Circulation, motion, and sensation intact. Range of motion: intact in all extremities. Assessment: 03:00 General: Appears distressed, uncomfortable, Behavior is cooperative, anxious. Pain: jb4 Complains of pain in lateral canthus of right eye and right wrist Pain does not radiate. Pain currently is 6 out of 10 on a pain scale. Neuro: Level of Consciousness is awake, alert, obeys commands, Oriented to person, PT's daughter in law reports patient is at her base line.. Cardiovascular: Patient's skin is warm and dry. Rhythm is sinus rhythm. Respiratory: Airway is patent Respiratory effort is even, unlabored, Respiratory pattern is regular, symmetrical. GI: No deficits noted. No signs and/or symptoms were reported involving the gastrointestinal system. : No deficits noted. No signs and/or symptoms were reported regarding the genitourinary system. EENT: No deficits noted. No signs and/or symptoms were reported regarding the EENT system. Derm: Skin is intact, Skin is pink, warm \T\ dry. Musculoskeletal: Circulation, motion, and sensation intact. Range of motion: intact in all extremities. 04:00 Reassessment: Patient appears in no apparent distress at this time. No changes from jb4 previously documented assessment. Patient and/or family updated on plan of care and expected duration. Pain level reassessed. 04:31 Reassessment: Patient appears in no apparent distress at this time. Patient and/or 4 family updated on plan of care and expected duration. Pain level reassessed. PT discharged home with daughter in law. Assisted to vehicle via wheelchair. Vital Signs: 03:00 BP 132 / 69; Pulse 63; Resp 36; Temp 97.6(O); Pulse Ox 100% on R/A; Weight 45.36 kg jb4 (R); Height 5 ft. 2 in. (157.48 cm); Pain 6/10; 04:00 BP 138 / 69; Pulse 60; Resp 16; Pulse Ox 94% on R/A; jb4 03:00 Body Mass Index 18.29 (45.36 kg, 157.48 cm) jb4 Boyce Coma Score: 03:00 Eye Response: spontaneous(4). Verbal Response: confused(4). Motor Response: obeys jb4 commands(6). Total: 14. 04:00 Eye Response: spontaneous(4). Verbal Response: confused(4). Motor Response: obeys jb4 commands(6). Total: 14. Trauma Score (Adult): 03:00 Eye Response: spontaneous(1); Verbal Response: confused(1); Motor Response: obeys jb4 commands(2); Systolic BP: > 89 mm Hg(4); Respiratory Rate: > 29 per min(3); Joselo Score: 14; Trauma Score: 11 04:00 Eye Response: spontaneous(1); Verbal Response: confused(1); Motor Response: obeys jb4 commands(2); Systolic BP: > 89 mm Hg(4); Respiratory Rate: 10 to 29 per min(4); Boyce Score: 14; Trauma Score: 12 ED Course: 03:00 Patient has correct armband on for positive identification. Placed in gown. Bed in low jb4 position. Call light in reach. Side rails up X 1. Patient maintains SpO2 saturation greater than 95% on room air. 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 Pulse ox on. NIBP on. 03:00 Arm band placed on right wrist. jb4 03:00 Patient maintains SpO2 saturation greater than 95% on room air. jb4 03:00 Thermoregulation: warm blanket given to patient. jb4 03:09 Patient arrived in ED. jb4 03:11 Hugo Fine, RN is Primary Nurse. rr5 03:12 Triage completed. jb4 03:13 Guru Tran MD is Attending Physician. gs 03:22 Naida Thompson MD is Hospitalizing Provider. gs 03:48 Ruben Watson, RN is Primary Nurse. jb4 04:04 CT Head C Spine In Process Unspecified. EDMS 04:31 No provider procedures requiring assistance completed. Patient did not have IV access jb4 during this emergency room visit. Administered Medications: No medications were administered Intake: 04:32 PO: 0ml; Total: 0ml. jb4 Output: 04:32 Urine: 0ml; Total: 0ml. jb4 Outcome: 03:22 Decision to Hospitalize by Provider. gs 04:22 Discharge ordered by . gs 04:31 Discharged to home via wheelchair, with family. jb4 04:31 Condition: stable 04:31 Discharge instructions given to family, Instructed on discharge instructions, follow up and referral plans. Demonstrated understanding of instructions, follow-up care. 04:32 Patient's length of stay was not longer than 2 hours. jb4 04:32 Patient left the ED. jb4 Signatures: Dispatcher [employer] [facility] Ruben Watson RN RN jb4 Guru Tran MD MD Hugo Fine RN RN rr5
[2018-12-04 04:36] VITALS: BP 138/69; O2SAT 94
--- NOTE | 2018-12-04 10:00 | EKG ---
Test Date: 2018-12-04 Test Time: 03:09:16 [place]man: ZANA MEASUREMENT RESULTS: Intervals: Rate: 67 MN: 172 QRSD: 80 QT: 424 QTc: 448 [place]: P: 79 MN: 172 QRS: 45 T: 61 INTERPRETIVE STATEMENTS: Normal sinus rhythm Normal ECG Compared to ECG 07/17/2018 10:57:02 No significant changes Electronically Signed On 12-04-18 09:59:54 CDT by Negrito Luis
--- NOTE | 2018-12-04 10:25 | RAD REPORT ---
EXAM DESCRIPTION: CT - [id number] - 12/04/2018 4:23 am CLINICAL HISTORY: The patient is 88 years old and is Female; PAIN TECHNIQUE: Axial computed tomography images of the head/brain and cervical spine without intravenous contrast. Sagittal and coronal reformatted images were created and reviewed. This CT exam was pe rformed using one or more of the following dose reduction techniques: automated exposure control, a djustment of the mA and/or kV according to patient size, and/or use of iterative reconstruction techn ique. COMPARISON: No relevant prior studies available. FINDINGS: BRAIN: There is diffuse cerebral atrophy present, consistent with this patient's age. There is patchy hypoattenuation of the deep white matter which is non-specific, but most likely owing to chronic small vessel ischemic change in a patient of this age group. No intracranial hemorrhage , mass effect, or midline shift is seen. There are no extra-axial fluid collections. VENTRICLES: There is diffuse prominence of the ventricles, which is likely related to central at rophy. SKULL: No acute fracture. SINUSES: Unremarkable as visualized. No acute sinusitis. MASTOID AIR CELLS: Unremarkable as visualized. No mastoid effusion. VERTEBRAE: Examination is limited as the anterior aspect of the C2, C3, C4 vertebral body are in completely imaged. The vertebral body heights and alignment are grossly maintained. DISCS/SPINAL CANAL/NEURAL FORAMINA: There is multi-level intervertebral disc height loss. There are disc-osteophyte complexes at several levels, with associated mild spinal canal narrowing. There i s also facet hypertrophy and uncovertebral joint osteophytosis, with associated multilevel neural for aminal narrowing. SOFT TISSUES: The soft tissues are normal. LUNG APICES: The lung apices are clear. IMPRESSION: 1. Age-related atrophy and chronic white matter ischemic changes, with no evidence of an acute intracranial abnormality. 2. Mild spondylosis of the cervical spine without gross findings. Electronically signed by: Patria Clark MD 12/04/2018 4:10 AM CDT Due to temporary technical issues with the PACS/Fluency reporting system, reports are being signed by the in house radiologist as a courtesy to ensure prompt reporting. The interpreting radiologist is f ully responsible for the content of the report.
== END 2018-12-04 04:32 | disposition home or self-care (01) ==
LOC: ER 03:02
DX: S00.93XA Contusion of unspecified part of head, initial encounter (principal); W17.89XA Other fall from one level to another, initial encounter; Y93.9 Activity, unspecified; Y92.9 Unspecified place or not applicable; F41.9 Anxiety disorder, unspecified; E07.9 Disorder of thyroid, unspecified
CPT/HCPCS: 70450; 72125; 93005; 99284

== ENCOUNTER 2018-12-22 19:16 | Inpatient (IN) | payer OTHER ==
[2018-12-22] MEDS ORDERED: NA CHLORIDE 0.9% 1,000 ML ONE (20:46)
[2018-12-22 20:53] LABS: Absolute Lymphocytes (CBC) 0.9 K/uL (0.7-4.9); Basophils % 0.4 % (0-1.3); Hematocrit 40.1 % (36.0-45.0); Lymphocytes % 9.3 % (15.3-44.8); MPV 7.7 fL (7.6-11.3); RBC Red Blood Cell Count 4.28 M/uL (3.86-4.86)
--- NOTE | 2018-12-22 20:54 | RAD REPORT ---
EXAM DESCRIPTION: CT - Head C Spine Cap Wo Con - 12/22/2018 8:41 pm CLINICAL HISTORY: Trauma, head and neck injury. Chest, abdomen and pelvis pain. Pain;Swelling COMPARISON: No comparisons TECHNIQUE: CT head without contrast. CT cervical spine without contrast with coronal and sagittal reformatted images. CT chest, abdomen and pelvis without contrast with coronal and sagittal reformatted images of the spi ne. All CT scans are performed using dose optimization technique as appropriate and may include automated exposure control or mA/KV adjustment according to patient size. FINDINGS: CT HEAD WITHOUT CONTRAST: No intracranial hemorrhage, hydrocephalus or extra-axial fluid collection. Moderate generalized brain atrophy is present with moderate periventricular and deep white matter chronic microvascular ischemi c changes. No areas of brain edema or midline shift. The paranasal sinuses and mastoids are clear. The calvarium is intact. CT CERVICAL SPINE WITHOUT CONTRAST: No fracture or subluxation. Moderate lower cervical spondylosis is present. The prevertebral soft tis sues are normal in thickness. CT CHEST, ABDOMEN, PELVIS WITHOUT CONTRAST: NOTE: Lack of contrast is a significant limitation in the assessment of trauma related findings. Spec ifically, solid organ, vascular and bowel evaluation is significantly limited. The lungs are emphysematous.No pneumothorax or pericardial/pleural fluid. No evidence of intra-abdominal visceral injury, free fluid or free air is seen within the above detai led limitations. Cholelithiasis. Moderate colonic diverticulosis is seen. Subcapital fracture the proximal right femur is suspected. IMPRESSION: Subcapital fracture proximal right femur suspected. Elsewhere, trauma related abnormality is seen.
[2018-12-22 20:55] LABS: Protime INR 1.02
--- NOTE | 2018-12-22 21:54 | EDPHYS ---
Physician Documentation [facility] Name: Berkley Calvo Age: 88 yrs Sex: Female : 1930 Arrival Date: 12/22/2018 Time: 19:32 Bed 30 Private MD: JESÚS Physician Emeterio Packer HPI: 12/22 21:46 This 88 yrs old Female presents to ER via EMS with complaints of Fall. irena 21:46 The patient or guardian reports decreased range of motion, deformity, pain. that irena occurred at a [facility] or assisted living facility, sustained from a fall, right leg is externally rotated, The patient is not able to ambulate. Patient is not able to bear weight. There is no radiation of the patient's discomfort. The complaints affect the right hip, right gluteal fold, right inner thigh and right upper thigh. Onset: The symptoms/episode began/occurred just prior to arrival. Modifying factors: The symptoms are alleviated by nothing, the symptoms are aggravated by any movement. Details of fall: The patient fell from an upright position, while walking. Associated injuries: The patient sustained right hip, right gluteal fold, right inner thigh and right upper thigh. Historical: - Home Meds: 19:46 amlodipine 5 mg tab [Active]; aspirin 81 mg Oral TbEC [Active]; levothyroxine 50 mcg tr5 tab [Active]; Lexapro 10 mg Oral tab [Active]; Tylenol 325 mg Oral tab [Active]; Tylenol Extra Strength Oral [Active]; - PMHx: 19:46 Anxiety; CVA; Dementia; Hypertension; OA; scoliosis; Thyroid problem; tr5 - Immunization history:: Adult Immunizations up to date. - Social history:: Smoking status: Patient/guardian denies using tobacco, never smoked. - Ebola Screening: : No symptoms or risks identified at this time. - Family history:: not pertinent. ROS: 21:46 Constitutional: Negative for fever, chills, and weight loss, Eyes: Negative for injury, irena pain, redness, and discharge, ENT: Negative for injury, pain, and discharge, Neck: Negative for injury, pain, and swelling, Cardiovascular: Negative for chest pain, palpitations, and edema, Respiratory: Negative for shortness of breath, cough, wheezing, and pleuritic chest pain, Abdomen/GI: Negative for abdominal pain, nausea, vomiting, diarrhea, and constipation, Back: Negative for injury and pain, : Negative for injury, bleeding, discharge, and swelling, Skin: Negative for injury, rash, and discoloration, Neuro: Negative for headache, weakness, numbness, tingling, and seizure, Psych: Negative for depression, anxiety, suicide ideation, homicidal ideation, and hallucinations, Allergy/Immunology: Negative for hives, rash, and allergies, Endocrine: Negative for neck swelling, polydipsia, polyuria, polyphagia, and marked weight changes, Hematologic/Lymphatic: Negative for swollen nodes, abnormal bleeding, and unusual bruising. 21:46 MS/extremity: Positive for decreased range of motion, pain, tenderness, of the right femoral area and right hip. Exam: 21:46 Constitutional: This is a well developed, well nourished patient who is awake, alert, irena and in no acute distress. Head/Face: Normocephalic, atraumatic. Eyes: Pupils equal round and reactive to light, extra-ocular motions intact. Lids and lashes normal. Conjunctiva and sclera are non-icteric and not injected. Cornea within normal limits. Periorbital areas with no swelling, redness, or edema. ENT: Nares patent. No nasal discharge, no septal abnormalities noted. Tympanic membranes are normal and external auditory canals are clear. Oropharynx with no redness, swelling, or masses, exudates, or evidence of obstruction, uvula midline. Mucous membranes moist. Neck: Trachea midline, no thyromegaly or masses palpated, and no cervical lymphadenopathy. Supple, full range of motion without nuchal rigidity, or vertebral point tenderness. No Meningismus. Chest/axilla: Normal chest wall appearance and motion. Nontender with no deformity. No lesions are appreciated. Cardiovascular: Regular rate and rhythm with a normal S1 and S2. No gallops, murmurs, or rubs. Normal PMI, no JVD. No pulse deficits. Respiratory: Lungs have equal breath sounds bilaterally, clear to auscultation and percussion. No rales, rhonchi or wheezes noted. No increased work of breathing, no retractions or nasal flaring. Abdomen/GI: Soft, non-tender, with normal bowel sounds. No distension or tympany. No guarding or rebound. No evidence of tenderness throughout. Back: No spinal tenderness. No costovertebral tenderness. Full range of motion. Skin: Warm, dry with normal turgor. Normal color with no rashes, no lesions, and no evidence of cellulitis. Psych: Awake, alert, with orientation to person, place and time. Behavior, mood, and affect are within normal limits. 21:46 Musculoskeletal/extremity: ROM: limited active range of motion due to pain, limited passive range of motion due to pain, in the right leg, Circulation is intact in all extremities. the right leg Compartment Syndrome exam of affected extremity: is normal. Joints: Weight bearing: can bear weight with assistance only, DVT Exam: no pain, no swelling, no tenderness, negative Homans' sign noted on exam, no erythema. Vital Signs: 19:47 BP 138 / 77; Pulse 75; Resp 15; Temp 97.6(O); Pulse Ox 100% on R/A; tr5 21:00 BP 151 / 88; Pulse 79; Resp 17; Pulse Ox 100% on R/A; tr5 22:00 BP 145 / 88; Pulse 86; Resp 16; Pulse Ox 97% on R/A; tr5 23:00 BP 127 / 61; Pulse 76; Resp 16; Pulse Ox 99% on 2 lpm NC; tr5 MDM: 19:41 Patient medically screened. [facility] 21:50 Data reviewed: vital signs, nurses notes, lab test result(s), EKG, radiologic studies, [facility] CT scan, MRI, plain films. 12/22 20:12 Order name: Basic Metabolic Panel [facility] 12/22 20:12 Order name: CBC with Diff; Complete Time: 21:45 [facility] 12/22 20:12 Order name: LFT's [facility] 12/22 20:12 Order name: Magnesium [facility] 12/22 20:12 Order name: NT PRO-BNP [facility] 12/22 20:12 Order name: PT-INR; Complete Time: 21:45 [facility] 12/22 20:12 Order name: Troponin (emerg Dept Use Only) [facility] 12/22 20:12 Order name: XRAY Chest (1 view) [facility] 12/22 20:12 Order name: CT Traumagram (Head C Spine CAP wo con); Complete Time: 21:45 [facility] 12/22 20:12 Order name: Urine Culture [facility] 12/22 20:12 Order name: Type And Screen; Complete Time: 22:41 [facility] 12/22 23:15 Order name: Urine Dipstick--Ancillary (enter results) 12/22 23:24 Order name: ABO/RH no charge [facility] 12/22 23:29 Order name: Urine Dipstick-Ancillary [facility] 12/22 20:12 Order name: EKG; Complete Time: 20:13 [facility] 12/22 20:12 Order name: Cardiac monitoring; Complete Time: 20:35 [facility] 12/22 20:12 Order name: EKG - Nurse/Tech; Complete Time: 21:55 [facility] 12/22 20:12 Order name: IV Saline Lock; Complete Time: 20:35 [facility] 12/22 20:12 Order name: Labs collected and sent; Complete Time: 20:35 [facility] 12/22 20:12 Order name: O2 Per Protocol; Complete Time: 20:51 [facility] 12/22 20:12 Order name: O2 Sat Monitoring; Complete Time: 20:51 [facility] 12/22 20:12 Order name: Urine Dipstick-Ancillary (obtain specimen); Complete Time: 23:04 [facility] 12/22 20:12 Order name: Pelvis XRAY [facility] 12/22 20:12 Order name: Hip Right 2 View XRAY [facility] 12/22 20:12 Order name: Femur Right XRAY [facility] 12/22 22:00 Order name: CONS Physician Consult [facility] 12/22 22:41 Order name: Hill Leg Bag; Complete Time: 23:04 [facility] Administered Medications: 20:50 Drug: NS 0.9% 1000 ml Route: IV; Rate: 125 ml/hr; Site: left antecubital; tr5 23:13 Drug: Zofran 4 mg Route: IVP; Site: left antecubital; tr5 23:47 Follow up: Response: Nausea is decreased tr5 23:14 Drug: morphine 2 mg {Note: RASS:0.} Route: IVP; Site: left antecubital; tr5 23:47 Follow up: Response: Pain is decreased; RASS: Alert and Calm (0) tr5 Disposition: 12/22/18 21:53 Hospitalization ordered by Philip Corley for Inpatient Admission. Preliminary diagnosis are Fall due to bumping against object, Weakness, Nondisplaced fracture of base of neck of right femur - [facility], Urinary tract infection, site not specified, Dementia in other diseases classified elsewhere. - Bed requested for Telemetry/MedSurg (Inpatient). - Status is Inpatient Admission. tr5 - Condition is Fair. - Problem is new. - Symptoms have improved. UTI on Admission? No Signatures: Dispatcher [employer] Emeterio Acuña MD MD cha Garcia, Cindy, RN RN Roderick Chavez RN RN tr5 Corrections: (The following items were deleted from the chart) 22:37 21:53 Hospitalization Ordered by Philip Corley MD for Inpatient Admission. Preliminary cg diagnosis is Fall due to bumping against object; Weakness; Nondisplaced fracture of base of neck of right femur - [facility]; Urinary tract infection, site not specified. Bed requested for Telemetry/MedSurg (Inpatient). Status is Inpatient Admission. Condition is Fair. Problem is new. Symptoms have improved. UTI on Admission? No. irena 23:24 22:37 12/22/2018 21:53 Hospitalization Ordered by Philip Corley MD for Inpatient irena Admission. Preliminary diagnosis is Fall due to bumping against object; Weakness; Nondisplaced fracture of base of neck of right femur - [facility]; Urinary tract infection, site not specified. Bed requested for Telemetry/MedSurg (Inpatient). Status is Inpatient Admission. Condition is Fair. Problem is new. Symptoms have improved. UTI on Admission? No. cg 12/23 00:10 12/22 23:24 12/22/2018 21:53 Hospitalization Ordered by Philip Corley MD for Inpatient tr5 Admission. Preliminary diagnosis is Fall due to bumping against object; Weakness; Nondisplaced fracture of base of neck of right femur - [facility]; Urinary tract infection, site not specified; Dementia in other diseases classified elsewhere. Bed requested for Telemetry/MedSurg (Inpatient). Status is Inpatient Admission. Condition is Fair. Problem is new. Symptoms have improved. UTI on Admission? No. irena
--- NOTE | 2018-12-22 21:54 | ER ---
Nurse's Notes [facility] Name: Berkley Calvo Age: 88 yrs Sex: Female : 1930 Arrival Date: 12/22/2018 Time: 19:32 Bed 30 Private MD: Diagnosis: Fall due to bumping against object;Weakness;Nondisplaced fracture of base of neck of right femur-SUBCAPITAL;Urinary tract infection, site not specified;Dementia in other diseases classified elsewhere Presentation: 12/22 19:34 Presenting complaint: EMS states: Pt is staying in the locked down section of the tr5 carriage in for her dementia. She was walking and overstepped and fell. She did not hit her head and she had no LOC. She complained of R hip pain. We inserted a 18 G IV to her L AC and gave 50 Fentanyl and 4 Zofran. In route we gave another 20 Fentanyl. Transition of care: patient was not received from another setting of care. Onset of symptoms was December 22, 2018. Risk Assessment: Do you want to hurt yourself or someone else? Patient reports no desire to harm self or others. Initial Sepsis Screen: Does the patient meet any 2 criteria? No. Patient's initial sepsis screen is negative. Does the patient have a suspected source of infection? No. Patient's initial sepsis screen is negative. Care prior to arrival: Medication(s) given: zofran 4 mg, Fentanyl 50 X1 and 20 X1. 19:34 Method Of Arrival: EMS: [facility] tr5 19:34 Acuity: MILES 3 tr5 Historical: - Home Meds: 19:46 amlodipine 5 mg tab [Active]; aspirin 81 mg Oral TbEC [Active]; levothyroxine 50 mcg tr5 tab [Active]; Lexapro 10 mg Oral tab [Active]; Tylenol 325 mg Oral tab [Active]; Tylenol Extra Strength Oral [Active]; - PMHx: 19:46 Anxiety; CVA; Dementia; Hypertension; OA; scoliosis; Thyroid problem; tr5 - Immunization history:: Adult Immunizations up to date. - Social history:: Smoking status: Patient/guardian denies using tobacco, never smoked. - Ebola Screening: : No symptoms or risks identified at this time. - Family history:: not pertinent. Screenin:48 Abuse screen: Denies threats or abuse. Nutritional screening: No deficits noted. tr5 Tuberculosis screening: No symptoms or risk factors identified. Fall Risk None identified. Assessment: 19:48 General: Appears in no apparent distress. Behavior is calm, cooperative. Pain: Denies tr5 pain. Neuro: Level of Consciousness is awake, alert, obeys commands, Oriented to person, place, situation, Superintendent Service are equal bilaterally Moves all extremities. Cardiovascular: No deficits noted. Respiratory: Airway is patent. GI: No signs and/or symptoms were reported involving the gastrointestinal system. : No signs and/or symptoms were reported regarding the genitourinary system. EENT: No signs and/or symptoms were reported regarding the EENT system. Derm: No signs and/or symptoms reported regarding the dermatologic system. Musculoskeletal: No signs and/or symptoms reported regarding the musculoskeletal system. 21:00 Reassessment: Patient appears in no apparent distress at this time. Patient and/or tr5 family updated on plan of care and expected duration. Pain level reassessed. 22:00 Reassessment: Patient appears in no apparent distress at this time. No changes from tr5 previously documented assessment. Patient and/or family updated on plan of care and expected duration. Pain level reassessed. Daughter with pt at bedside. Vital Signs: 19:47 BP 138 / 77; Pulse 75; Resp 15; Temp 97.6(O); Pulse Ox 100% on R/A; tr5 21:00 BP 151 / 88; Pulse 79; Resp 17; Pulse Ox 100% on R/A; tr5 22:00 BP 145 / 88; Pulse 86; Resp 16; Pulse Ox 97% on R/A; tr5 23:00 BP 127 / 61; Pulse 76; Resp 16; Pulse Ox 99% on 2 lpm NC; tr5 ED Course: 19:32 Patient arrived in ED. ds1 19:33 Roderick Chavez, TEJAL is Primary Nurse. tr5 19:36 Triage completed. tr5 19:40 Emeterio Packer MD is Attending Physician. irena 19:47 Arm band placed on. tr5 19:48 Bed in low position. Call light in reach. Side rails up X 1. tr5 20:34 Initial lab(s) drawn, by me, sent to lab. lt1 20:[address] via stretcher. nj 20:42 CT Traumagram (Head C Spine CAP wo con) In Process Unspecified. EDMS 21:34 XRAY Chest (1 view) In Process Unspecified. EDMS 21:34 Pelvis XRAY In Process Unspecified. EDMS 21:34 Hip Right 2 View XRAY In Process Unspecified. EDMS 21:35 Femur Right XRAY In Process Unspecified. EDMS 21:51 Philip Corley MD is Hospitalizing Provider. [facility] 23:04 Hill cath inserted, using sterile technique, 16 Fr., by short filler bunch machine operator, balloon inflated, to tr5 gravity drainage, urine specimen collected. 23:08 Urine Culture Sent. lt1 23:46 No provider procedures requiring assistance completed. Patient admitted, IV remains in tr5 place. Administered Medications: 20:50 Drug: NS 0.9% 1000 ml Route: IV; Rate: 125 ml/hr; Site: left antecubital; tr5 23:13 Drug: Zofran 4 mg Route: IVP; Site: left antecubital; tr5 23:47 Follow up: Response: Nausea is decreased tr5 23:14 Drug: morphine 2 mg {Note: RASS:0.} Route: IVP; Site: left antecubital; tr5 23:47 Follow up: Response: Pain is decreased; RASS: Alert and Calm (0) tr5 Outcome: 21:53 Decision to Hospitalize by Provider. [facility] 23:46 Admitted to Med/surg accompanied by tech, via stretcher, with chart, Report called to trRadha Guevara RN 23:46 Condition: stable 23:46 Instructed on the need for admit. 11 00:10 Patient left the ED. tr5 Signatures: Dispatcher [employer] Emeterio Acuña MD MD cha Sanford, Demi ds1 Renzo Gale Leah lt1 Roderick Chavez, RN RN tr5 Corrections: (The following items were deleted from the chart) 11 20:35 20:34 Initial lab(s) drawn, by nc, sent to lab. [facility] lt1 20:51 19:34 Care prior to arrival: None. tr5 tr5 23:24 21:00 Reassessment: Patient appears in no apparent distress at this time. Patient tr5 and/or family updated on plan of care and expected duration. Pain level reassessed. Patient is alert, oriented x 3, equal unlabored respirations, skin warm/dry/pink. tr5
[2018-12-22 23:05] LABS: ALT/SGPT 23 U/L (12-78); AST/SGOT 25 U/L (15-37); Albumin 3.9 g/dL (3.4-5.0); Alkaline Phosphatase 86 U/L (45-117); BUN Blood Urea Nitrogen 22 mg/dL (7-18); Bicarbonate 28 mmol/L (21-32); Bilirubin Direct 0.1 mg/dL (0-0.2); Bilirubin Total 0.7 mg/dL (0.2-1.0); Glucose Level 140 mg/dL (74-106); Magnesium 2.1 mg/dL (1.8-2.4); NT PRO-BNP 324 pg/mL (<450); Potassium 3.4 mmol/L (3.5-5.1); Protein, Total 8.1 g/dL (6.4-8.2); Sodium Level 140 mmol/L (136-145); Troponin (Emerg Dept Use Only) < 0.02 ng/mL (0.0-0.045)
[2018-12-22] MEDS ORDERED: ONDANSETRON 4 MG/2 ML VIAL ONE (23:08)
[2018-12-22] MEDS ORDERED: MORPHINE 2 MG/ML SYR ONE (23:08)
[2018-12-22 23:28] LABS: Urine Blood TRACE (NEG); Urine Glucose NEGATIVE (NEG); Urine Protein TRACE (NEG); Urine pH 7.5 (5.0-7.0)
[2018-12-23] MEDS ORDERED: ACETAMINOPHEN 500 MG TAB PO PRN (00:40)
[2018-12-23] MEDS: NA CHLORIDE 0.9% 1,000 ML IV SCH ×2 (00:40→08:01)
[2018-12-23] MEDS ORDERED: ONDANSETRON 4 MG/2 ML VIAL IV PRN (00:40)
[2018-12-23 07:06] LABS: Potassium 4.1 mmol/L (3.5-5.1)
[2018-12-23 07:08] LABS: Absolute Lymphocytes (CBC) 0.9 K/uL (0.7-4.9); Basophils % 0.2 % (0-1.3); Hematocrit 31.8 % (36.0-45.0); Lymphocytes % 8.7 % (15.3-44.8); MPV 7.9 fL (7.6-11.3); RBC Red Blood Cell Count 3.42 M/uL (3.86-4.86)
--- NOTE | 2018-12-23 08:43 | EKG ---
Test Date: 2018-12-22 Test Time: 21:50:18 Perfume Compounder: IMANI MEASUREMENT RESULTS: Intervals: Rate: 87 NJ: 190 QRSD: 88 QT: 372 QTc: 447 [place]: P: 112 NJ: 190 QRS: 12 T: 56 INTERPRETIVE STATEMENTS: Normal sinus rhythm Nonspecific ST and T wave abnormality Abnormal ECG Compared to ECG 12/22/2018 21:47:58 Possible ischemia no longer present ST (T wave) deviation still present Electronically Signed On 12-23-18 08:43:04 CDT by Negrito Luis
--- NOTE | 2018-12-23 09:53 | RAD REPORT ---
EXAM DESCRIPTION: RAD - Hip Right 2 View - 12/22/2018 9:34 pm CLINICAL HISTORY: Right hip pain FINDINGS: A subcapital impacted mildly to moderately displaced right femoral fracture. No dislocatio n
--- NOTE | 2018-12-23 09:53 | RAD REPORT ---
EXAM DESCRIPTION: RAD - Pelvis - 12/22/2018 9:34 pm CLINICAL HISTORY: Pelvic pain status post injury FINDINGS: A subcapital impacted mildly to moderately displaced right femoral fracture. No dislocatio n
--- NOTE | 2018-12-23 09:54 | RAD REPORT ---
EXAM DESCRIPTION: RAD - Femur Right - 12/22/2018 9:34 pm CLINICAL HISTORY: Right leg pain FINDINGS: A subcapital impacted mildly to moderately displaced right femoral fracture. No dislocatio n
--- NOTE | 2018-12-23 09:56 | RAD REPORT ---
EXAM DESCRIPTION: Marc Single View12/22/2018 9:36 pm CLINICAL HISTORY: Chest pain COMPARISON: September 2018 FINDINGS: The lungs are hyperaerated. Old rib fractures The lungs appear clear of acute infiltrate. The heart is normal size IMPRESSION: No acute abnormalities displayed
[2018-12-23] MEDS: D5 0.9 NS 1,000 ML IV SCH (10:07)
[2018-12-23] MEDS ORDERED: ENOXAPARIN 30 MG/0.3 ML SQ ONE (10:41)
[2018-12-23] MEDS: MORPHINE 2 MG/ML SYR IV PRN (13:11)
--- NOTE | 2018-12-23 22:40 | HP ---
Date of Admission: 12/22/2018 Chief Complaint: Fall and hip pain. History Of Present Illness: This is an 88-year-old pleasant [facility] after she fell down and complaining of hip pain. After the patien t came into emergency room further workup revealed presence of right proximal femur subcapital fractu re. The patient was admitted to the hospital. When I saw her this morning, she denied any other spe cific complaints. There was no family member at bedside. Allergies: NO KNOWN ALLERGIES. Medications: 1.Amlodipine 5 mg daily. 2.Aspirin 81 mg daily. 3.Caltrate plus D 1 tablet 2 times a day. 4.Restasis eye drops daily. 5.Lexapro 10 mg p.o. daily. 6.Levothyroxine 50 mcg p.o. daily. Past Medical History: Significant for dementia, allergies, hypothyroidism, hypertension, overactive bladder, scoliosis, osteoarthritis at multiple sites. Past Surgical History: Tonsillectomy, appendectomy. Family History: Significant for myocardial infarction, hypertension, stroke, and arthritis. Social History: Prior history of smoking, not at present time. Use of alcohol very rare. Physical Examination: Vital Signs: Temperature 97.7, pulse 74, respiratory rate 16, blood pressure 152/62, oxygen saturati on 98% on 2 L nasal cannula oxygen. Height 5 feet 4 inches, weight 112 pounds. General: Patient awake, alert, not completely oriented due to her underlying dementia problem and wa s noted to be little restless. She was able to recognize me. HEENT: Head atraumatic, normocephalic. Conjunctivae nonerythematous. Sclerae white. Mouth, no thr ush or edema noted. Ears/Nose, no mass, lesion, discharge noted. Neck: Supple. No JVD, lymph nodes, bruit, thyromegaly noted. Lungs: Bilateral good equal air entry. Clear to auscultation. No rhonchi. No rales. Heart: Normal heart sounds, no murmur or gallop. Abdomen: Soft, bowel sounds normal. No guarding, rigidity, tenderness, mass, hepatosplenomegaly, dis tention, or bruit noted. Extremities: No leg edema. No calf tenderness. Skin: No rash, ulcer, cellulitis. Lymphatics: No lymph node enlargement in neck, supraclavicular, infraclavicular region. Neuro: No focal neurological deficit. Chest: Unremarkable. External Genitalia: Deferred. Rectal: Deferred. Laboratory Data: Yesterday's white count 9.6, hemoglobin 13.5, platelets 228. This morning white co unt 10.4, hemoglobin 11, platelets 181. INR 1.02. Yesterday, sodium 140, potassium 3.4, chloride 10 5, bicarb 28, BUN 22, creatinine 1, glucose 140. Liver function tests unremarkable. Troponin less t turner 0.02. This morning sodium 142, potassium 4.1, chloride 109 bicarb 29, BUN 22, creatinine 0.99, g lucose 117. Urinalysis negative. EKG normal sinus rhythm, nonspecific ST-T changes. CAT scan of th e head, C-spine, chest, abdomen, pelvis, shows subcapital fracture of proximal right femur, otherwise no other acute findings. Impression: 1.Right femur subcapital fracture. 2.Senile dementia, hypokalemia. 3.Hypertension. 4.Osteoarthritis, multiple sites. 5.Overactive bladder. 6.Hypothyroidism. 7.Allergic rhinitis. 8.Scoliosis. Plan: Admit patient to hospital for further evaluation and management of this problem. Patient is a ppropriate for inpatient and is expected to spend 2 midnights in hospital. We will go ahead and cont inue home medications per order. SCD was ordered for DVT prophylaxis. Details were discussed with Geena Sadler, who is planning to do surgery tomorrow. So today, the patient will receive 1 dose of L ovenox that he has ordered for DVT prophylaxis. Pain medications will be given per order. Patient i s at acceptable risk from planned surgery and I will see her tomorrow for followup. YAQUELIN/MODL Voice ID: [id number]
--- NOTE | 2018-12-23 22:40 | CON ---
Date of Consultation: 12/23/2018 History Of Present Illness: I have not seen this patient before. She is an 88-year-old female who u nfortunately fell injuring her right lower extremity. Apparently, she was normally ambulatory at a [facility] facility, but came to the emergency room with complaints of pain and inability to ambulate. S he was seen and examined in the emergency department where she was ruled out for other injuries. How ever, x-rays demonstrated a slightly displaced right femoral neck fracture. On review of medical his tory, she does have a history of CVA, also history of dementia and hypertension. Review of x-rays de monstrates a slightly displaced femoral neck fracture on the right. Physical Examination: All of her long bones and joints are palpated without pain or crepitation. She does have a small sabrina ck eye, but otherwise does not show any other signs of trauma other than pain with any movement or ma nipulation of the right lower extremity. She is not a very good historian. Asked if she has pain an ywhere. She says she has both of her arms hurt when asked where they hurt. She said all the way as she hurt anywhere else. She says she does not really hurt anywhere else until attention was brought to her right hip, which is painful for her. She is asked why she is in the hospital. She says she u sed to know, but she has since done. Assessment: An 88-year-old female with history of dementia and cerebrovascular accident, now unfortu nately with a right hip femoral neck fracture. She was previously ambulatory. I have spoken with Dr Lexi Corley, who says that she should be good for operative intervention. I have discussed this with the patient as well, although I do not know how much she understands. We will attempt to contact family. We have not yet contacted an group worker. Plan: Established contact with the patient's family to discuss plan after which we will most likely proceed with right bipolar hemiarthroplasty tomorrow. Otherwise, Lovenox now with SCD. Regular diet. N.p.o. after midnight. /AILYN Voice ID: [id number] Report ID: [id number]
[2018-12-23] MEDS ORDERED: ZIPRASIDONE MESYLA 20 MG/VIAL IM PRN (22:45)
[2018-12-23] MEDS ORDERED: WATER FOR INJ,STERILE 10 ML IM PRN (22:45)
[2018-12-24] MEDS: D5 0.9 NS 1,000 ML IV SCH ×2 (04:41→15:14)
[2018-12-24] MEDS: MORPHINE 2 MG/ML SYR IV PRN ×3 (06:06→22:52)
[2018-12-24] MEDS ORDERED: Ringers Lactate 1,000 ML IV ONE ×2 (07:37→08:05)
[2018-12-24] MEDS ORDERED: MIDAZOLAM HCL 2 MG/2 ML INJ ONE (07:56)
[2018-12-24] MEDS ORDERED: TRANEXAMIC ACID 1,000 MG in NA CHLORIDE 0.9% 50 ML IV ONE (08:00)
[2018-12-24] MEDS ORDERED: CEFAZOLIN/SWI 1gm 1 GM/10 ML SYR ONE (08:04)
[2018-12-24] MEDS ORDERED: PROPOFOL 200 MG/20 ML VIAL IV ONE (08:11)
[2018-12-24] MEDS ORDERED: ROCURONIUM 50 MG/5 ML VIAL IV ONE (08:12)
[2018-12-24] MEDS ORDERED: Phenylephrine HCl 10 MG/ML 1 ML VIAL ONE ×2 (08:13→08:14)
[2018-12-24] MEDS ORDERED: KETOROLAC 30 MG/ML INJ ONE (08:46)
[2018-12-24] MEDS ORDERED: FENTANYL CITR 100 MCG/2 ML ONE (08:46)
[2018-12-24] MEDS ORDERED: dexAMETHasone 10 MG/ML VIAL ONE (08:46)
[2018-12-24] MEDS ORDERED: ONDANSETRON 4 MG/2 ML VIAL ONE (08:46)
[2018-12-24] MEDS ORDERED: KETAMINE HCL 500 MG/5 ML VIAL ONE (09:49)
[2018-12-24] MEDS ORDERED: GLYCOPYRROLATE 0.2 MG/ML SYR ONE (09:50)
[2018-12-24] MEDS ORDERED: NEOSTIGMINE 1 MG/ML -10 ML VIAL ONE (09:50)
--- NOTE | 2018-12-24 10:36 | P.BOP ---
Preoperative diagnosis: right femoral neck fracture Postoperative diagnosis: same Primary procedure: right bipolar emma arthoplasty Estimated blood loss: 100 Anesthesia: General Transferred to: Recovery Room Condition: Good
[2018-12-24] MEDS ORDERED: NA CHLORIDE 0.9% 250 ML IV ONE (14:40)
[2018-12-24] MEDS ORDERED: HALOPERIDOL LACT 5 MG/ML INJ IV PRN (14:46)
[2018-12-24] MEDS: LORazepam 2 MG/ML VIAL IV PRN (15:17)
[2018-12-24 15:25] LABS: Absolute Lymphocytes (CBC) 0.6 K/uL (0.7-4.9); Basophils % 0.3 % (0-1.3); Hematocrit 32.6 % (36.0-45.0); Lymphocytes % 5.7 % (15.3-44.8); MPV 7.8 fL (7.6-11.3); RBC Red Blood Cell Count 3.51 M/uL (3.86-4.86)
[2018-12-24 15:38] LABS: Potassium 4.1 mmol/L (3.5-5.1)
[2018-12-24 18:29] LABS: Blood Morphology Comment NOT SEEN (NOT SEEN); Platelet Estimate ADEQ
[2018-12-24] MEDS ORDERED: CEFAZOLIN/NS 1gm 1 GM/50 ML BAG IVPB SCH (20:00)
--- NOTE | 2018-12-24 20:25 | PN ---
Date of Progress Note: 12/24/2018 Subjective: Patient was seen this afternoon for followup. She was seen in ICU after her surgery. T his morning when I went to see her, she was in the operating room. I did discuss details with her da [id number] in the waiting room area while patient was in surgery. Objective: HEENT: Unremarkable. Lungs: Clear to auscultation. Heart: Sounds normal. Abdomen: Soft. Bowel sounds normal. No guarding, rigidity, tenderness, distention. Extremities: No leg edema. Laboratory Data: There was no blood work today, but I ordered stat CBC and chemistry after I saw her . Impression: 1.Right hip fracture. 2.Hypotension. 3.Anemia. 4.Dementia. Plan: Last night, the patient was very restless and she kept on pulling out multiple IVs. Ever sinc e her surgery, she has been sleeping, and when I saw her in the ICU, she was still sleeping at that t aracelis. A total of 2000 cc of urine output was reported today, and her systolic blood pressure has been on the low side around 90 systolic, so I have ordered 250 cc of normal saline bolus and then changed IV fluid to D5 normal saline at 100 cc/hour. We will follow up on blood work today. She received 1 dose of Lovenox 30 mg yesterday morning for DVT prophylaxis, and we will start that as of tomorrow m aubrey. I have ordered Haldol and Ativan for p.r.n. use in case of agitation problem starts after sh e wakes up. Agitation, confusion, hallucination, all those things are to be expected with her underl daniel dementia and current hospitalization. All those details were discussed with family member this morning. We also talked about discharge planning, and the patient will need to go to a prison facility upon discharge from the hospital. Family was advised to communicate with Social Ser vice starting tomorrow for arrangements. YAQUELIN/MODL Voice ID: [id number] Report ID: [id number]
[2018-12-24] MEDS ORDERED: CEFAZOLIN SODIUM 1 GM/VIAL ONE (20:37)
[2018-12-24] MEDS ORDERED: NA CHLORIDE 0.9% 50 ML ONE (20:41)
[2018-12-24] MEDS: CEFAZOLIN/NS 1gm 1 GM/50 ML BAG IVPB SCH (20:45)
--- NOTE | 2018-12-24 21:10 | OP ---
Date of Procedure: 12/23/2018 Surgeon: Anthony Sadler MD Preoperative Diagnosis: Right femoral neck fracture. Postoperative Diagnosis: Right femoral neck fracture. Procedure: Right femoral neck bipolar hemiarthroplasty. Estimated Blood Loss: 100 mL. Complications: No complications. Specimens: No pathology specimens sent. Indications For Operation: Ms. Calvo is an 88-year-old female, who normally lives in assisted living , but unfortunately fell injuring her right lower extremity. [facility] where she was found not to have any other significant injuries. She was then admitted to the floor and cleared for surgery by Dr. Corley. She does suffer from dementia and we were unable to get her di rect consent, however, family has consented to the procedure and all risks, benefits, and alternative s of this procedure have been discussed with both them as well as the patient who may understand some of the information and they agreed to proceed. Description Of Procedure: Patient taken to the operating room, placed in supine position. General a nesthesia was obtained by staff. Following this, she was rolled left side down, right lower extremit ies in appropriate position using the hip positioners. Right lower extremity was then prepped and dr aped in usual fashion procedure following this, a standard posterior lateral incision was taken down carefully through skin and soft tissues. Meticulous hemostasis being maintained using Bovie electroc autery. This leads down to hematoma which was gently evacuated and after further dissection, the fas brenda was encountered. A small stab wound made in the fascia and the gluteal tendon was palpated to en sure appropriate placement. This was then brought up superiorly until the fibers of gluteus elen were encountered. These were then split using finger pressure. Sciatic nerve was identified and pro tected and the external rotators as well as capsule were then removed and tagged for later repair. F ollowing this, the neck disengages and is brought into the field. A slightly lower than standard saw cut was then made. The remnants of the broken neck were removed, a corkscrew was used to remove. T he ball was appropriately sized to a 46 using ring gauges. The acetabulum was cleared of any debris. All bleeding was controlled. Attention was then turned back to the femur where a box machine operator was us ed followed by sequential cylindrical reamers up to a size 13. This was followed by broaching to a s ize 13. After this, the canal was then copiously irrigated with jet lavage until it runs clear. The bone plug was placed to appropriate depth. It was again jet lavage until clear. Third generation c ementation technique was then used to place a Biomet fracture stem, size 11. This was held in place until the cement hardened. Following this, any unsupported cement was removed. The acetabulum was c hecked and found to be without any debris and cleared. This was followed by trialing with a +3 ball. A +3 ball did appear to be without Shuck laterally or inferiorly also at 90 degrees and full adduct ion. It was stable to approximately 30 degrees of internal rotation. This is most likely appropriat e. However, given the patient's dementia and inability to follow commands, we decided to place +6. A +6 did appear to be slightly more stable with regard to internal rotation to full adduction. This was selected as the final ball. All surfaces were cleaned and the final ball was then placed and red uced, it is stable in the above areas as well. The wound was irrigated. The external rotators and c apsule were repaired back to the greater trochanter using bone tunnels. This was followed by closure of the fascia in a watertight fashion followed by closure of the skin with Vicryl as well as natalie . The patient was then placed in Aquacel dressing, awakened, and taken to recovery room in good cond ition. No complications. /AILYN Voice ID: [id number] Report ID: [id number]
[2018-12-25] MEDS: D5 0.9 NS 1,000 ML IV SCH ×4 (00:54→16:50)
[2018-12-25] MEDS ORDERED: CEFAZOLIN SODIUM 1 GM/VIAL ONE (02:50)
[2018-12-25] MEDS ORDERED: NA CHLORIDE 0.9% 50 ML ONE (03:06)
[2018-12-25] MEDS: MORPHINE 2 MG/ML SYR IV PRN ×4 (03:54→23:35)
[2018-12-25] MEDS: CEFAZOLIN/NS 1gm 1 GM/50 ML BAG IVPB SCH (03:55)
[2018-12-25] MEDS: LORazepam 2 MG/ML VIAL IV PRN ×3 (04:40→20:33)
[2018-12-25 05:16] LABS: Absolute Lymphocytes (CBC) 1.2 K/uL (0.7-4.9); Basophils % 0.3 % (0-1.3); Hematocrit 27.4 % (36.0-45.0); Lymphocytes % 12.5 % (15.3-44.8); MPV 8.3 fL (7.6-11.3); RBC Red Blood Cell Count 2.96 M/uL (3.86-4.86)
[2018-12-25 05:36] LABS: Potassium 3.9 mmol/L (3.5-5.1)
[2018-12-25] MEDS ORDERED: WATER FOR INJ,STERILE 10 ML IM PRN (07:03)
[2018-12-25] MEDS ORDERED: ZIPRASIDONE MESYLA 20 MG/VIAL IM PRN (07:03)
[2018-12-25] MEDS ORDERED: ACETAMINOPHEN 500 MG TAB PO PRN (07:04)
[2018-12-25] MEDS ORDERED: NA CHLORIDE 0.9% 250 ML IV ONE ×3 (07:05→11:56)
[2018-12-25] MEDS ORDERED: ONDANSETRON 4 MG/2 ML VIAL IV PRN (07:07)
[2018-12-25] MEDS ORDERED: HYDROCODONE/APAP 5/325 MG TAB PO PRN (07:07)
[2018-12-25] MEDS: LEVOTHYROXINE SOD 0.05 MG TABLET PO SCH (07:15)
[2018-12-25] MEDS: ENSURE HIGH PROTEIN 237 ML CAN PO SCH ×3 (09:00→20:08)
[2018-12-25] MEDS: ESCITALOPRAM 20 MG TAB PO SCH (09:00)
[2018-12-25] MEDS: ENOXAPARIN 30 MG/0.3 ML SQ SCH (09:27)
[2018-12-25] MEDS ORDERED: NA CHLORIDE 0.9% 250 ML IV PRN (09:56)
[2018-12-25] MEDS ORDERED: NA CHLORIDE 0.9% 250 ML ONE (10:15)
[2018-12-25] MEDS ORDERED: CEFAZOLIN/SWI 1gm 1 GM/10 ML SYR IV SCH (12:45)
[2018-12-25] MEDS ORDERED: CEFAZOLIN/NS 1gm 1 GM/50 ML BAG IVPB SCH (12:45)
--- NOTE | 2018-12-26 01:02 | PN ---
Date of Progress Note: 12/25/2018 Subjective: Patient was seen this morning for followup. She was lying in bed in ICU. When I saw he r, intake and output records reviewed. Overnight, the patient had some problem with agitation, restl essness, and she did receive Ativan with copious amount of fluid. This morning when I saw her, she w as sleeping. Patient has not had anything to eat or drink since her surgery and this morning some En sure was ordered. Objective: Vital Signs: Reviewed. Lungs: Clear to auscultation. No rhonchi or rales. Heart: Sounds normal. Abdomen: Soft. Bowel sounds normal. No guarding, rigidity, tenderness, distention. Extremities: No leg edema. Laboratory Data: White count 9.4, hemoglobin 9.6, platelets 161. Sodium 132, potassium 3.9, chlorid e 110, bicarb 24, BUN 25, creatinine 1.33, glucose 112, magnesium 2. Impression: 1.Acute kidney injury. 2.Volume depletion. 3.Anemia due to acute blood loss. 4.Right hip fracture. 5.Dementia. Plan: Patient had low urinary output with increased creatinine as noted. IV fluid bolus was given t adis per order and that actually has resulted in improvement in her urine output. After I saw her th is morning, transfer order was written, but because of low urine output, we like to transfer and keep her in ICU today. We will continue to monitor intake and output. Continue IV fluid per order. Nut ritional supplement Ensure was ordered and I will see her tomorrow for followup. Continue Lovenox for DVT prophylaxis. If her condition is stable, we will transfer her ou t of ICU to regular room tomorrow. YAQUELIN/MODL Voice ID: [id number] Report ID: [id number]
[2018-12-26] MEDS: MORPHINE 2 MG/ML SYR IV PRN ×4 (04:42→22:23)
--- NOTE | 2018-12-26 05:04 | PN ---
Date of Progress Note: 12/25/2018 The patient is seen today. She is asleep. Her dressing is clean, dry, and intact. There is a small amount of spotting, which is not unusual. She has a hemoglobin in the 9 and appears to be holding. Heels are elevated. She has been seen by Physical Therapy, but was too sleepy to work with them thi s morning. They will come back later this afternoon. Otherwise, Dr. Corley is monitoring for slightly decreased urine output and thinks he will keep her in the ICU for another day. /MODL Voice ID: [id number] Report ID: [id number]
[2018-12-26 05:16] LABS: Absolute Lymphocytes (CBC) 1.4 K/uL (0.7-4.9); Basophils % 0.5 % (0-1.3); Hematocrit 24.9 % (36.0-45.0); MPV 7.8 fL (7.6-11.3); RBC Red Blood Cell Count 2.72 M/uL (3.86-4.86)
[2018-12-26 05:30] LABS: Magnesium 1.8 mg/dL (1.8-2.4); Potassium 3.3 mmol/L (3.5-5.1)
[2018-12-26 05:37] VITALS: BMI 18.7
[2018-12-26] MEDS ORDERED: MAGNESIUM SULFATE 1 gm IVPB 1 GM/100 ML BAG IV ONE (06:00)
[2018-12-26] MEDS: KCL 20 MEQ/100 mL IVPB 20 MEQ/100 ML BAG IV SCH ×2 (06:19→09:00)
[2018-12-26] MEDS: LEVOTHYROXINE SOD 0.05 MG TABLET PO SCH (06:20)
[2018-12-26] MEDS: ENOXAPARIN 30 MG/0.3 ML SQ SCH (08:55)
[2018-12-26] MEDS ORDERED: AMPICILLIN/SULBACT 1.5GM VIAL IVPB SCH (09:00)
[2018-12-26] MEDS: ESCITALOPRAM 20 MG TAB PO SCH (09:00)
[2018-12-26] MEDS: D5 0.9 NS 1,000 ML IV SCH (09:00)
[2018-12-26] MEDS: AMPICILLIN/SULBACT 1.5 GM in NA CHLORIDE 0.9% 100 ML IVPB SCH ×2 (09:02→17:42)
[2018-12-26] MEDS: LORazepam 2 MG/ML VIAL IV PRN (11:14)
[2018-12-26] MEDS: ENSURE HIGH PROTEIN 237 ML CAN PO SCH ×3 (11:17→20:58)
[2018-12-27] MEDS: AMPICILLIN/SULBACT 1.5 GM in NA CHLORIDE 0.9% 100 ML IVPB SCH ×3 (00:14→16:20)
--- NOTE | 2018-12-27 01:11 | PN ---
Date of Progress Note: 12/26/2018 Subjective: Patient was seen this morning for followup. She was lying in bed in ICU not in any dist ress. Intake and output records reviewed. Objective: Vital Signs: Reviewed. HEENT: Unremarkable. Lungs: Clear to auscultation. Heart: Sounds normal. Abdomen: Soft. Bowel sounds normal. No guarding, rigidity, tenderness, or distention. Extremities: No leg edema. Laboratory Data: Sodium 140, potassium 3.3, chloride 109, bicarb 26, BUN 14, creatinine 0.81, glucos e 99, magnesium white count 9.5, hemoglobin 8.7, platelets 164. Impression: 1.Right hip fracture. 2.Senile dementia. 3.Hypokalemia. 4.Acute kidney injury, . 5.Anemia due to acute blood loss. Plan: We will continue current medication. Patient is stable for transfer out of ICU to regular [facility]. We will continue . We will see her tomorrow for followup and she continues to stay sleepy and gets agitated from time to time, requiring IV Ativan. Nutritional supplement is o rdered. Social Service will assist family with discharge plan for care home facility placement . YAQUELIN/MODL Voice ID: [id number] Report ID: [id number]
[2018-12-27] MEDS: D5 0.9 NS 1,000 ML IV SCH (04:31)
[2018-12-27] MEDS: MORPHINE 2 MG/ML SYR IV PRN ×3 (04:38→18:40)
[2018-12-27] MEDS: LEVOTHYROXINE SOD 0.05 MG TABLET PO SCH (05:52)
[2018-12-27 05:58] LABS: Basophils % 0.5 % (0-1.3); Hematocrit 28.6 % (36.0-45.0); Lymphocytes % 13.7 % (15.3-44.8); MPV 7.7 fL (7.6-11.3); RBC Red Blood Cell Count 3.09 M/uL (3.86-4.86)
[2018-12-27 06:07] LABS: Magnesium 2.1 mg/dL (1.8-2.4); Potassium 3.4 mmol/L (3.5-5.1)
[2018-12-27] MEDS: LORazepam 2 MG/ML VIAL IV PRN (07:00)
[2018-12-27] MEDS: ENOXAPARIN 30 MG/0.3 ML SQ SCH (08:15)
[2018-12-27] MEDS: ENSURE HIGH PROTEIN 237 ML CAN PO SCH ×4 (08:15→21:00)
[2018-12-27] MEDS: KCL 20 MEQ/100 mL IVPB 20 MEQ/100 ML BAG IV SCH ×2 (08:15→10:53)
[2018-12-27] MEDS: ESCITALOPRAM 20 MG TAB PO SCH (08:16)
--- NOTE | 2018-12-27 23:55 | PN ---
Subjective: Patient seen here for followup. She was lying in bed, not in distress, sleeping ___ she opened her eyes little bit, but she did not communicate . Objective: Vital Signs: Reviewed. HEENT: . Lungs: Clear to auscultation. Heart: Sounds normal. Abdomen: Soft. Bowel sounds normal. No guarding, rigidity, tenderness, or distention. Extremities: No leg edema. Laboratory Data: White count 6.9, hemoglobin 9.9, platelets 190. Sodium 140, potassium 3.4, chlorid e 107, bicarb 28, BUN 10, creatinine 0.73, glucose 115, magnesium 2.1. Impression: 1.Right hip fracture. 2.Hypokalemia. 3.Anemia due to acute blood loss. 4.Urinary tract infection. Plan: We will continue all antibiotics, although the patient is not eating and drinking c ontinue IV antibiotics right now. We will continue the IV fluid, discontinue Ativan that she was get ting on a p.r.n. basis for agitation. Patient still has Haldol, although we will see whether she wak es up enough to start eating today or not. We are not comfortable putting a nasogastric feeding tube because she tends to pull out IVs and she will definitely pull out the feeding tube as well. Social Service is assisting the family for jail facility placement. Replace potassium per protocol. Continue Lovenox for DVT prophylaxis. YAQUELIN/MODL Voice ID: [id number] Report ID: [id number]
[2018-12-28] MEDS: AMPICILLIN/SULBACT 1.5 GM in NA CHLORIDE 0.9% 100 ML IVPB SCH ×3 (00:59→16:35)
[2018-12-28] MEDS: MORPHINE 2 MG/ML SYR IV PRN ×2 (01:04→05:28)
[2018-12-28] MEDS ORDERED: KCL 20 MEQ/100 mL IVPB 20 MEQ/100 ML BAG IV SCH (03:00)
[2018-12-28] MEDS: LEVOTHYROXINE SOD 0.05 MG TABLET PO SCH (06:30)
[2018-12-28] MEDS: D5 0.9 NS 1,000 ML IV SCH ×2 (08:20→21:00)
[2018-12-28] MEDS: ENOXAPARIN 30 MG/0.3 ML SQ SCH (08:21)
[2018-12-28] MEDS: ESCITALOPRAM 20 MG TAB PO SCH (08:24)
[2018-12-28] MEDS: ENSURE HIGH PROTEIN 237 ML CAN PO SCH ×3 (08:28→19:25)
--- NOTE | 2018-12-28 21:54 | PN ---
Date of Progress Note: 12/28/2018 Subjective: Patient was seen this morning for followup. She was lying in bed, not in any distress, sleeping, arousable after some difficulty noted and not oriented at all. Objective: Vital Signs: Reviewed. HEENT: Examination unremarkable. Lungs: Clear to auscultation. Heart: Heart sounds normal. Abdomen: Soft. Bowel sounds normal. No guarding, rigidity, tenderness, or distention. Extremities: No leg edema. Laboratory Data: Last potassium yesterday was 3.7. Assessment: 1.Hip fracture. 2.Hypokalemia due to acute blood loss. 3.Dementia. Plan: Patient has not had anything to eat or drink since her surgery and continues to have significa nt altered mental status after surgery. I have discontinued Ativan, Haldol will be continued on a p. r.n. basis. Continue antibiotic for urinary tract infection. Patient's [id number] was present today at the hospital. I did talk to her about the patient's overall poor prognosis. She is not eat ing anything. We are hoping that when she wakes up enough then she should be able to eat, drink, but so far she has not done so. I talked to family about 3 different options, one is temporary nasogast vladimir tube placement, second one is permanent PEG tube placement, third one is nasogastric oral tube pl acement. If we put nasogastric tube, we are afraid she will pull it out and she will have to be rest rained. Second option is permanent feeding tube. With that I feel like that the particular decision is too only and family is not ready for it anyway. Last option was hospice care and this was discus sed with family as well. During the course of day today, I was informed that family is interested we will have social work administrator assist with that. YAQUELIN/MODL Voice ID: [id number] Report ID: [id number]
[2018-12-29] MEDS: AMPICILLIN/SULBACT 1.5 GM in NA CHLORIDE 0.9% 100 ML IVPB SCH ×2 (02:47→09:16)
[2018-12-29] MEDS: LEVOTHYROXINE SOD 0.05 MG TABLET PO SCH (05:22)
[2018-12-29 06:25] LABS: Magnesium 2.3 mg/dL (1.8-2.4); Potassium 3.3 mmol/L (3.5-5.1)
[2018-12-29 06:36] LABS: Absolute Lymphocytes (CBC) 0.7 K/uL (0.7-4.9); Basophils % 0.5 % (0-1.3); Hematocrit 30.5 % (36.0-45.0); Lymphocytes % 7.9 % (15.3-44.8); MPV 7.6 fL (7.6-11.3); RBC Red Blood Cell Count 3.31 M/uL (3.86-4.86)
[2018-12-29] MEDS ORDERED: NITROGLYCERIN 1 GM PKT TD SCH ×2 (08:00→12:00)
[2018-12-29] MEDS: ESCITALOPRAM 20 MG TAB PO SCH (09:00)
[2018-12-29] MEDS: ENOXAPARIN 30 MG/0.3 ML SQ SCH (09:17)
[2018-12-29] MEDS: ENSURE HIGH PROTEIN 237 ML CAN PO SCH (09:21)
[2018-12-29 09:28] VITALS: O2SAT 92
[2018-12-29] MEDS: MORPHINE 2 MG/ML SYR IV PRN (12:20)
[2018-12-29] MEDS ORDERED: MORPHINE 2 MG/ML SYR IV PRN (12:23)
[2018-12-29] MEDS: D5 0.9 NS 1,000 ML IV SCH (14:35)
[2018-12-29 17:39] VITALS: BP 166/89; TEMP 97.8
--- NOTE | 2018-12-30 04:05 | DS ---
Date of Discharge: 12/29/2018 Disposition: Patient will be discharged to go to [facility] with hospice care. Physical Examination: HEENT: Unremarkable. Lungs: Clear to auscultation. Heart: Heart sounds normal. Abdomen: Soft, bowel sounds normal. No guarding, rigidity, tenderness, or distention. Extremities: No leg edema. Laboratory Data: Labs done during this hospitalization, last blood work today white count 9.1, hemog lobin 10.4, platelets 242. Sodium 140, potassium 3.3, chloride 106, bicarb 27, BUN 17, creatinine 0. 93, glucose 130. Her blood pressure today was 192/85, temperature 97.2, pulse 102. Hospital Course: This is an 88-year-old female patient living at [facility] , fell down and was brought into the emergency room. Further evaluation revealed presence of hip fra cture. The patient had surgery done by Dr. Sadler for right hip fracture day after admission. Po stoperatively, she was brought to intensive care unit for close observation. Her condition was stabl e in ICU and subsequently we did transfer her out of ICU to regular room. She had acute kidney injur y while she was in ICU with oliguria and responded very well to IV fluid bolus and urine output start ed improving. Subsequently, renal function improved and normalized and remained normal. Hill jeff ter was removed and her blood pressure was normal until as of last night. This morning, blood pressu re has started to go up, so we will go ahead and start her on antihypertensive medication. So, far d uring this entire hospitalization, the patient has not been able to eat or drink anything. Yesterday , it was the first day that she had 2 or 3 sips of water. Otherwise, she has not had anything to eat or drink. I did talk to patient's family member. We discussed about different possibilities: One is putting temporary nasogastric tube for nutritional support and medication; second, PEG tube placem ent, which is too premature at this point to consider that; third option was hospice care. Family de cided to go on hospice care. Social Service was consulted and arrangements were made for patient to return back to [facility] with hospice care. When I examined her today for the first time she actu ally talked to me, she did not answer any questions, but at least she was talking. She is totally di soriented. She did receive some Haldol and Ativan for agitation and about 48 hours ago or so we disc ontinued her Ativan. She has tendency to pull telemetry wires and IVs. Not sure if she will continu e to improve. As far as mental status is concerned, enough to eat, drink, and take medications by [facility] are not, but at least at this point she has not been able to do so during this hospitalization. Considering her blood pressure was elevated today, we will start her on nitroglycerin ointment every 6 hours to try to help control the blood pressure. She has urinary tract infection and she was given IV antibiotics for this. Lovenox was given for DVT prophylaxis. Overall, her prognosis is poor and today she will be discharged from hospital to go back to [facility] with the hospice agency [facility]. After discussing with family about advanced directives, DNR order was written in the c [place]. Final Diagnoses: 1.Right femur subcapital fracture, status post surgery. 2.Acute blood loss anemia. 3.Hypokalemia. 4.Senile dementia. 5.Hypertension. 6.Osteoarthritis, multiple sites. 7.Acute kidney injury, resolved. 8.Osteoarthritis, multiple sites. 9.Hypothyroidism. 10.Allergic rhinitis. 11.Scoliosis. See copy of discharge order for details and comfort care to be provided by hospice care. YAQUELIN/MODL Voice ID: [id number] Report ID: [id number]
--- NOTE | 2018-12-30 04:11 | DS ---
Date of Discharge: 12/29/2018 Disposition: Discharged to go to [facility] with hospice care. Physical Examination: HEENT: Unremarkable. Lungs: Clear to auscultation. Heart: Heart sounds normal. Abdomen: Soft. Bowel sounds normal. No guarding, rigidity, tenderness, distention. Extremities: No leg edema. DICTATION ENDS HERE. YAQUELIN/MODL Voice ID: [id number] Report ID: [id number]
== END 2018-12-29 17:04 | disposition hospice, inpatient (51) | DRG 470 ==
LOC: ER 19:16 → ERHOLD 22:06 → 4TH 23:58 → 3RD-ICU 12-24 10:47 → 2ND 12-26 10:35
PROVIDERS: ADMIT Internal Medicine; ATTEND Internal Medicine
PROC: 0SRR0J9 Replacement of Right Hip Joint, Femoral Surface with Synthetic Substitute, Cemented, Open Approach (ICD-10-PCS; principal; 2018-12-23)
DX: S72.011A Unspecified intracapsular fracture of right femur, initial encounter for closed fracture (principal); N17.9 Acute kidney failure, unspecified; D62 Acute posthemorrhagic anemia; W01.0XXA Fall on same level from slipping, tripping and stumbling without subsequent striking against object, initial encounter; Y92.199 Unspecified place in other specified residential institution as the place of occurrence of the external cause; Z86.73 Personal history of transient ischemic attack (TIA), and cerebral infarction without residual deficits; F03.90 Unspecified dementia, unspecified severity, without behavioral disturbance, psychotic disturbance, mood disturbance, and anxiety; E03.9 Hypothyroidism, unspecified; I10 Essential (primary) hypertension; M19.90 Unspecified osteoarthritis, unspecified site; E87.6 Hypokalemia; N32.81 Overactive bladder; J30.9 Allergic rhinitis, unspecified; M41.9 Scoliosis, unspecified; N30.90 Cystitis, unspecified without hematuria; B95.2 Enterococcus as the cause of diseases classified elsewhere
CPT/HCPCS: 36415; 51702; 70450; 71045; 71250; 72125; 72170; 80048; 80076; 81003; 83735; 83880; 84132; 84484; 85025; 85610; 86850; 86900; 86901; 87077; 87086; 87088; 87186; 88305; 88311; 93005; 96374; 96375; 97110; 97161; 97530; 99285; J0295; J0690; J1100; J1630; J1650; J2250; J2270; J2370; J2405; J2704; J2710; J3010; J3475; J3486; J7030; J7042; J7120

== ENCOUNTER 2018-12-29 18:32 | Observation (INO) | payer OTHER ==
[2018-12-29] MEDS ORDERED: ZIPRASIDONE MESYLA 20 MG/VIAL IM PRN (19:01)
[2018-12-29] MEDS ORDERED: WATER FOR INJ,STERILE 10 ML IM PRN (19:01)
[2018-12-29] MEDS ORDERED: MORPHINE 2 MG/ML SYR IV PRN (19:04)
[2018-12-29] MEDS ORDERED: HYDROCODONE/APAP 5/325 MG TAB PO PRN (19:05)
[2018-12-29] MEDS ORDERED: ONDANSETRON 4 MG/2 ML VIAL IV PRN (19:06)
[2018-12-29] MEDS ORDERED: ACETAMINOPHEN 500 MG TAB PO PRN (19:06)
[2018-12-29 22:04] VITALS: BMI 18.7
[2018-12-29] MEDS: HALOPERIDOL LACT 5 MG/ML INJ IV PRN (23:10)
[2018-12-30] MEDS ORDERED: NA CHLORIDE 0.9% 100 ML ONE (00:38)
[2018-12-30] MEDS: NITROGLYCERIN 1 GM PKT TD SCH ×2 (00:42→05:31)
[2018-12-30] MEDS ORDERED: AMPICILLIN/SULBACT 1.5GM VIAL IVPB SCH (01:00)
[2018-12-30] MEDS ORDERED: D5 0.9 NS 1,000 ML IV SCH (03:00)
[2018-12-30] MEDS ORDERED: LEVOTHYROXINE SOD 0.05 MG TABLET PO SCH (06:30)
[2018-12-30] MEDS: HALOPERIDOL LACT 5 MG/ML INJ IV PRN (06:43)
[2018-12-30 07:00] LABS: Absolute Lymphocytes (CBC) 1.1 K/uL (0.7-4.9); Basophils % 0.5 % (0-1.3); Hematocrit 29.8 % (36.0-45.0); Lymphocytes % 10.7 % (15.3-44.8); MPV 7.2 fL (7.6-11.3); RBC Red Blood Cell Count 3.24 M/uL (3.86-4.86)
[2018-12-30 07:13] LABS: Magnesium 2.2 mg/dL (1.8-2.4); Potassium 3.1 mmol/L (3.5-5.1)
[2018-12-30 08:08] VITALS: O2SAT 95
[2018-12-30] MEDS: ESCITALOPRAM 20 MG TAB PO SCH ×2 (08:30→09:00)
[2018-12-30] MEDS: AMLODIPINE 5 MG TAB PO SCH ×2 (08:31→09:00)
[2018-12-30] MEDS: RIVAROXABAN 10 MG TABLET PO SCH ×2 (08:31→09:00)
[2018-12-30] MEDS ORDERED: AMPICILLIN/SULBACT 1.5 GM in NA CHLORIDE 0.9% 100 ML IVPB SCH (09:00)
[2018-12-30] MEDS ORDERED: ENOXAPARIN 30 MG/0.3 ML SQ SCH (09:00)
[2018-12-30] MEDS ORDERED: ENSURE HIGH PROTEIN 237 ML CAN PO SCH (09:00)
[2018-12-30] MEDS ORDERED: KCL 20 MEQ/100 mL IVPB 20 MEQ/100 ML BAG IV SCH (11:00)
[2018-12-30 12:47] VITALS: BP 147/62; TEMP 97.8
--- NOTE | 2018-12-31 00:13 | SS ---
Date of Admission: 12/30/2018 Date of Discharge: 12/30/2018 Chief Complaint: Agitation. History Of Present Illness: This is an 88-year-old female patient, who lives at [facility] here in [facility] [place]. On 12/22/2018, the patient was sent to emergency room after she fell down at this facility and was diagnosed as having right hip fracture and the patient had surgery done for this hip fracture on 03/[address] Sadler. Patient was discharged to go to [facility]. Family decided to take her there with hospice care. During her last hospital stay, I did communicate with family regarding different options. Patient has not been eating or drinking anything since surgery except for just a few sips of water and yesterday when I discharged her, her mental stat was probably the best, which was not normal or meet the baseline, but at least she was awake, talking, not answering questions appropriately, but at least she was talking. The patient keeps on pulling out surveillance system monitor wires, so we did talk about possibility of temporary nasogastric tube feeding, which would not be a good idea because she would pull that out. In order for us to use it we will have to restrain her. Other possibility of PEG tube was discussed, but that is too premature decision and third possibility of hospice care was discussed and family decided to take her back to [facility], where she came from with hospice care. Social Service was consulted and all the arrangements were completed for patient to return back on hospice care from what I understand that when I saw her, she was not agitated and was very calm and no such problem reported after I left the hospital and the patient was discharged from the hospital. Prior to her discharge from the hospital, nurse did communicate with [facility] nurse about the day of patient's discharge and she also communicated with hospice nurse. Soon as patient arrived at [facility], she was still on the stretcher and she was transported via ambulance and while she was inside the facility, she got very agitated and nurse who was present at that facility at [facility] decided to send the patient immediately back to the hospital. Did not even give chance for hospice nurse to arrive there to help take care of the patient and hospice nurse was about 20 minutes away from this particular facility nurse decided to send patient back to the hospital. First time, I became aware of this whole situation is when the patient was brought back to the floor and clubhouse attendant contacted me with this information. The patient was directly admitted back to the same room where she was earlier with order to continue her all the medications as per last hospital stay. Overnight, her condition has remained stable. This morning, when I saw her, she was not as awake and alert as yesterday. The patient's family was at bedside and I did discuss with them about all this event of yesterday and we discussed different options and also informed family that the patient in her kind of situation is to be expected from time to time and different options were explained to family, which is either taking her back to [facility] with hospice care or taking her to alf facility with hospice or alf, whatever the family's decision is. Family went back to [facility] and she was planning to talk to the application systems administrator. As I understand, the application systems administrator at [facility] did not agree with nurse sending patient back to the hospital and I also have the same opinion that this was in appropriate transfer from [facility] to hospital and inappropriate decision on nurses part, but in any case, after the patient arrived, we kept her in the hospital for this disposition problem and today the patient's family went back to [facility] after they discussed with appropriate people at [facility]. The family decided to take the patient back to [facility] on hospice and I was informed by Social Service and nurse that hospice nurse will be available at [facility] at 1 p.m. today and the patient can return at that time and hospice will provide 24-hour care over the weekend and as of Tuesday family will discuss with [facility] regarding further care and this is the decision made by the patient's family member and they are agreeable with this plan. So, the patient will be discharged today to go back to [facility] in stable condition. Allergies: NO KNOWN ALLERGIES. Medicatios: List reviewed. Review of Systems: Musculoskeletal: As mentioned above. 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 Past Medical History: Significant for dementia, allergies, hypothyroidism, hypertension, overactive bladder, scoliosis, osteoarthritis at multiple sites. Past Surgical History: Tonsillectomy, appendectomy, recent surgery for hip fracture. Family History: Significant for myocardial infarction, hypertension, stroke, and arthritis. Social History: Prior history of smoking, not at present time. Use of alcohol very rare. Physical Examination: Vital Signs: Temperature 97.6, pulse 95, respiratory rate 16, blood pressure 127/65, oxygen saturation 92%. Height 5 feet 4 inches, weight 109 pounds. General: Patient lying in bed, not oriented, appears sleepy, not in any distress. HEENT: Head atraumatic, normocephalic. Conjunctivae nonerythematous. Sclerae white. Mouth, no thrush or edema noted. Ears/Nose, no mass, lesion, discharge noted. Neck: Supple. No JVD, lymph nodes, bruit, thyromegaly noted. Lungs: Bilateral good equal air entry. Clear to auscultation. No rhonchi. No rales. Heart: Normal heart sounds, no murmur or gallop. Abdomen: Soft, bowel sounds normal. No guarding, rigidity, tenderness, mass, hepatosplenomegaly, distention, or bruit noted. Extremities: No leg edema. No calf tenderness. Skin: No rash, ulcer, cellulitis. Lymphatics: No lymph node enlargement in neck, supraclavicular, infraclavicular region. Neuro: No focal neurological deficit. Chest: Unremarkable. External Genitalia: Deferred. Rectal: Deferred. Laboratory Data: White count 10.2, hemoglobin 10.4. Sodium 141, potassium 3.1 , chloride 106, bicarb 25, BUN 22, creatinine 1.08, glucose 141. Final Diagnoses: 1. Senile dementia. 2. Agitation secondary to above. 3. Hypokalemia. 4. Anemia due to acute blood loss. 5. Right femur subcapital fracture. 6. Hypertension. 7. Osteoarthritis of multiple sites. 8. Overactive bladder. 9. Hypothyroidism. 10. Allergic rhinitis. 11. Scoliosis. Discharge Medications And Orders: 1. Xarelto 10 mg p.o. daily for 3 weeks. 2. Continue all prior home medication except stop Aspirin. YAQUELIN/MODL Voice ID: [id number] Report ID: [id number]
== END 2018-12-30 13:27 | disposition hospice, inpatient (51) ==
LOC: 2ND 18:32
PROVIDERS: ADMIT Internal Medicine; ATTEND Internal Medicine
DX: F03.90 Unspecified dementia, unspecified severity, without behavioral disturbance, psychotic disturbance, mood disturbance, and anxiety (principal); R45.1 Restlessness and agitation; E87.6 Hypokalemia; D62 Acute posthemorrhagic anemia; S72.011A Unspecified intracapsular fracture of right femur, initial encounter for closed fracture; I10 Essential (primary) hypertension; E03.9 Hypothyroidism, unspecified; N32.81 Overactive bladder; M41.9 Scoliosis, unspecified; M15.9 Polyosteoarthritis, unspecified; Z87.891 Personal history of nicotine dependence
CPT/HCPCS: 36415; 80048; 83735; 85025; G0378; G0379; J0295; J1630; J2270; J3486; J7042